=== PATIENT | female | born 1960 | race Caucasian/White ===

== ENCOUNTER 2017-09-15 19:01 | Observation (INO) | payer BC ==
--- NOTE | 2017-09-15 19:41 | ED ---
General Adult HPI - General Chief complaint: Chest Pain Stated complaint: sob, chest pain, left shoulder/neck pain Time Seen by Provider: 09/15/17 19:15 Source: patient, RN notes reviewed, old records reviewed Mode of arrival: wheelchair Limitations: no limitations - History of Present Illness Initial comments: 57-year-old female history of hypothyroidism presents for evaluation of anterior chest pain. Patient states the pain began around 6 PM. She did have an episode earlier in the day which was associated with a stressful event. Patient denies cough or URI symptoms. Denies fever or chills. Patient states she had some nausea associated with the pain. No diaphoresis. Patient has past medical history of congestive heart failure which she states was secondary to hypothyroidism. She is a type I diabetic. She follows with cardiology at [facility]. No history of coronary artery disease. - Related Data Home Medications Medication Instructions Recorded Confirmed Aspirin EC [Ecotrin Low Dose] 81 mg PO DAILY 09/15/17 09/15/17 Furosemide [Lasix] 40 mg PO HS 09/15/17 09/15/17 Losartan Potassium 50 mg PO DAILY 09/15/17 09/15/17 Methimazole [Tapazole] 2.5 mg PO DAILY 09/15/17 09/15/17 Multivitamins, Thera [Multivitamin 1 tab PO DAILY 09/15/17 09/15/17 (formulary)] Potassium Chloride [Klor-Con 20] 40 meq PO HS 09/15/17 09/15/17 Pravastatin Sodium [Pravachol] 10 mg PO DAILY 09/15/17 09/15/17 Ubidecarenone [Co Q-10] 100 mg PO DAILY 09/15/17 09/15/17 Allergies Allergy/AdvReac Type Severity Reaction Status Date / Time cucumber Allergy Unknown Verified 09/15/17 19:11 erythromycin base Allergy Unknown Verified 09/15/17 19:11 Influenza Virus Vaccines Allergy Unknown Verified 09/15/17 19:11 Latex, Natural Rubber Allergy Unknown Verified 09/15/17 19:11 shellfish derived Allergy Unknown Verified 09/15/17 19:11 Review of Systems ROS Statement: Those systems with pertinent positive or pertinent negative responses have been documented in the HPI. ROS Other: All systems not noted in ROS Statement are negative. Past Medical History Past Medical History: Heart Failure, Diabetes Mellitus, Fibromyalgia, Osteoarthritis (OA), Thyroid Disorder Additional Past Medical History / Comment(s): graves disease History of Any Multi-Drug Resistant Organisms: None Reported Past Surgical History: Hysterectomy, Orthopedic Surgery Past Psychological History: No Psychological Hx Reported Smoking Status: Never smoker Past Alcohol Use History: None Reported Past Drug Use History: None Reported General Exam Limitations: no limitations General appearance: alert, in no apparent distress Head exam: Present: atraumatic, normocephalic Eye exam: Present: normal appearance, PERRL ENT exam: Present: normal exam Neck exam: Present: normal inspection. Absent: tenderness, meningismus Respiratory exam: Present: normal lung sounds bilaterally, chest wall tenderness. Absent: respiratory distress Cardiovascular Exam: Present: regular rate, normal rhythm GI/Abdominal exam: Present: soft. Absent: distended, tenderness Extremities exam: Present: full ROM, normal capillary refill, pedal edema Neurological exam: Present: alert, oriented X3, CN II-XII intact. Absent: motor sensory deficit Psychiatric exam: Present: normal affect, normal mood Skin exam: Present: warm, dry, intact. Absent: cyanosis, diaphoretic Course Vital Signs 09/15/17 09/15/17 09/15/17 19:05 20:00 20:31 Temperature 97.4 F L Pulse Rate 76 62 69 Respiratory 20 18 18 Rate Blood Pressure 174/82 184/78 184/78 O2 Sat by Pulse 99 100 98 Oximetry 09/15/17 21:35 Temperature Pulse Rate 77 Respiratory 18 Rate Blood Pressure 179/80 O2 Sat by Pulse 97 Oximetry EKG Findings - EKG Comments: EKG Findings:: EKG shows no sinus rhythm, ventricular rate 71, para 124, QS duration 100, QTC 454, no ST segment elevation or depression Medical Decision Making - Medical Decision Making 57-year-old female presenting with chest pain. EKG is nonischemic. Patient has significant risk factors for coronary artery disease including obesity, type 1 diabetes. No known history of coronary artery disease. Laboratory studies reveal normal white blood cell count, stable hemoglobin, d-dimer is negative. Troponin is negative, CMP within normal limits. Chest x-ray negative for acute findings. Patient will be placed in observation for serial cardiac enzymes and cardiology consult. - Lab Data Result diagrams: 09/15/17 19:38 09/15/17 19:38 Lab Results 09/15/17 09/15/17 09/15/17 Range/Units 19:38 19:38 19:38 WBC 7.6 (3.8-10.6) k/uL RBC 5.03 (3.80-5.40) m/uL Hgb 14.8 (11.4-16.0) gm/dL Hct 45.6 (34.0-46.0) % MCV 90.7 (80.0-100.0) fL MCH 29.5 (25.0-35.0) pg MCHC 32.6 (31.0-37.0) g/dL RDW 13.1 (11.5-15.5) % Plt Count 225 (150-450) k/uL Neutrophils % 63 % Lymphocytes % 26 % Monocytes % 6 % Eosinophils % 3 % Basophils % 1 % Neutrophils # 4.8 (1.3-7.7) k/uL Lymphocytes # 2.0 (1.0-4.8) k/uL Monocytes # 0.4 (0-1.0) k/uL Eosinophils # 0.2 (0-0.7) k/uL Basophils # 0.1 (0-0.2) k/uL PT (9.0-12.0) sec INR (<1.2) APTT (22.0-30.0) sec D-Dimer (<0.60) mg/L FEU Sodium 141 (137-145) mmol/L Potassium 3.7 (3.5-5.1) mmol/L Chloride 100 (98-107) mmol/L Carbon Dioxide 28 (22-30) mmol/L Anion Gap 13 mmol/L BUN 10 (7-17) mg/dL Creatinine 0.70 (0.52-1.04) mg/dL Est GFR (MDRD) Af Amer >60 (>60 ml/min/1.73 sqM) Est GFR (MDRD) Non-Af >60 (>60 ml/min/1.73 sqM) Glucose 185 H (74-99) mg/dL Calcium 9.3 (8.4-10.2) mg/dL Magnesium 2.0 (1.6-2.3) mg/dL Total Bilirubin 0.3 (0.2-1.3) mg/dL AST 23 (14-36) U/L ALT 33 (9-52) U/L Alkaline Phosphatase 94 (38-126) U/L Total Creatine Kinase 60 (30-135) U/L CK-MB (CK-2) 0.6 (0.0-2.4) ng/mL CK-MB (CK-2) Rel Index 1.0 Troponin I <0.012 (0.000-0.034) ng/mL NT-Pro-B Natriuret Pep pg/mL Total Protein 7.5 (6.3-8.2) g/dL Albumin 4.2 (3.5-5.0) g/dL 09/15/17 09/15/17 Range/Units 19:38 19:38 WBC (3.8-10.6) k/uL RBC (3.80-5.40) m/uL Hgb (11.4-16.0) gm/dL Hct (34.0-46.0) % MCV (80.0-100.0) fL MCH (25.0-35.0) pg MCHC (31.0-37.0) g/dL RDW (11.5-15.5) % Plt Count (150-450) k/uL Neutrophils % % Lymphocytes % % Monocytes % % Eosinophils % % Basophils % % Neutrophils # (1.3-7.7) k/uL Lymphocytes # (1.0-4.8) k/uL Monocytes # (0-1.0) k/uL Eosinophils # (0-0.7) k/uL Basophils # (0-0.2) k/uL PT 9.9 (9.0-12.0) sec INR 1.0 (<1.2) APTT 22.7 (22.0-30.0) sec D-Dimer 0.33 (<0.60) mg/L FEU Sodium (137-145) mmol/L Potassium (3.5-5.1) mmol/L Chloride (98-107) mmol/L Carbon Dioxide (22-30) mmol/L Anion Gap mmol/L BUN (7-17) mg/dL Creatinine (0.52-1.04) mg/dL Est GFR (MDRD) Af Amer (>60 ml/min/1.73 sqM) Est GFR (MDRD) Non-Af (>60 ml/min/1.73 sqM) Glucose (74-99) mg/dL Calcium (8.4-10.2) mg/dL Magnesium (1.6-2.3) mg/dL Total Bilirubin (0.2-1.3) mg/dL AST (14-36) U/L ALT (9-52) U/L Alkaline Phosphatase (38-126) U/L Total Creatine Kinase (30-135) U/L CK-MB (CK-2) (0.0-2.4) ng/mL CK-MB (CK-2) Rel Index Troponin I (0.000-0.034) ng/mL NT-Pro-B Natriuret Pep 60 pg/mL Total Protein (6.3-8.2) g/dL Albumin (3.5-5.0) g/dL Disposition Clinical Impression: Chest pain Disposition: ADMITTED IP TO THIS HOSP Condition: Stable Referrals: Pretty Westbrook MD [Primary Care Provider] - 1-2 days Decision to Admit Reason: Admit from EC Decision Date: 09/15/17 Decision Time: 21:51
[2017-09-15 19:53] LABS: Basophils # (A) 0.1 k/uL (0-0.2); Basophils % (A) 1 %; Eosinophils # (A) 0.2 k/uL (0-0.7); Eosinophils % (A) 3 %; HCT 45.6 % (34.0-46.0); HGB 14.8 gm/dL (11.4-16.0); Lymphocytes % (A) 26 %; MCH 29.5 pg (25.0-35.0); MCHC 32.6 g/dL (31.0-37.0); MCV 90.7 fL (80.0-100.0); Mean Platelet Volume 6.6; Monocytes # (A) 0.4 k/uL (0-1.0); Monocytes % (A) 6 %; Neutrophils # (A) 4.8 k/uL (1.3-7.7); Neutrophils % (A) 63 %; Platelet Count 225 k/uL (150-450); RBC 5.03 m/uL (3.80-5.40); RDW 13.1 % (11.5-15.5); WBC 7.6 k/uL (3.8-10.6)
[2017-09-15 20:04] LABS: ALT 33 U/L (9-52); AST 23 U/L (14-36); Albumin 4.2 g/dL (3.5-5.0); Alkaline Phosphatase 94 U/L (38-126); Anion Gap 13 mmol/L; Blood Urea Nitrogen 10 mg/dL (7-17); Calcium 9.3 mg/dL (8.4-10.2); Carbon Dioxide 28 mmol/L (22-30); Chloride 100 mmol/L (98-107); Glucose 185 mg/dL (74-99); Potassium 3.7 mmol/L (3.5-5.1); Sodium 141 mmol/L (137-145); Total Bilirubin 0.3 mg/dL (0.2-1.3); Total Protein 7.5 g/dL (6.3-8.2)
[2017-09-15 20:13] LABS: Creatine Kinase 60 U/L (30-135)
[2017-09-15 20:14] LABS: D-Dimer 0.33 mg/L FEU (<0.60); Partial Thromboplastin Time 22.7 sec (22.0-30.0); Prothrombin Time 9.9 sec (9.0-12.0)
--- NOTE | 2017-09-15 20:16 | XR ---
EXAMINATION TYPE: XR chest 2V DATE OF EXAM: 09/15/2017 COMPARISON: NONE HISTORY: Shortness of breath and chest pain going into left neck and shoulder. TECHNIQUE: Frontal and lateral views of the chest are obtained. FINDINGS: Exam is slightly suboptimal secondary to patient's large body habitus. There is no focal a ir space opacity, pleural effusion, or pneumothorax seen. The cardiac silhouette size is within norm al limits. The osseous structures are intact. IMPRESSION: No acute cardiopulmonary process.
[2017-09-15 20:26] LABS: Creatine Kinase MB 0.6 ng/mL (0.0-2.4); Troponin I <0.012 ng/mL (0.000-0.034)
[2017-09-15] MEDS ORDERED: NALOXONE 0.4 MG/ML 1 ML VIAL IV PRN (21:31)
[2017-09-15] MEDS ORDERED: ACETAMINOPHEN TAB 325 MG TAB PO PRN (21:42)
[2017-09-15] MEDS ORDERED: IBUPROFEN 400 MG TAB PO PRN (21:42)
[2017-09-15] MEDS ORDERED: ONDANSETRON 4 MG/2 ML VIAL IVP PRN (21:42)
[2017-09-15] MEDS ORDERED: MORPHINE SULFATE 4 MG/ML SYRINGE IV PRN (21:42)
[2017-09-15] MEDS ORDERED: ASPIRIN 325 MG TAB PO STA (21:47)
[2017-09-15] MEDS ORDERED: FUROSEMIDE 40 MG TAB PO SCH (22:00)
[2017-09-16] MEDS ORDERED: INSPUCOR MISCELLANE PRN (00:49)
[2017-09-16] MEDS ORDERED: INSULIN PUMP BASAL RATES 1 EACH MISC MISCELLANE PRN (00:49)
[2017-09-16] MEDS ORDERED: INSULIN ASPART 100 UNIT/ML 1 ML 10 ML VIAL SQ PRN (00:49)
[2017-09-16 03:14] LABS: Creatine Kinase 55 U/L (30-135)
[2017-09-16 03:22] LABS: Creatine Kinase MB 0.4 ng/mL (0.0-2.4); Troponin I <0.012 ng/mL (0.000-0.034)
--- NOTE | 2017-09-16 05:06 | HP ---
HISTORY AND PHYSICAL DATE OF SERVICE: 09/15/2017 CHIEF COMPLAINT: Chest pain. HISTORY OF PRESENT ILLNESS: This 57-year-old woman with a past medical history of multiple medical problems including heart failure, history of diabetes, fibromyalgia, hyperlipidemia, hypothyroidism, Graves disease, diabetes mellitus uses insulin pump, and history of congestive heart failure associated with Graves disease being by Dr. Westbrook in the outpatient setting, also being followed by [facility]. The patient apparently had a stress test about 2 years ago and subsequent had appointment recently, but the patient came to [facility] and admitted with complaints of chest pain which is felt in the anterior chest pain. Patient also had other chest pain this morning which was associated with some stressful event, but the pain also was associated with some nausea. Otherwise there was no radiation of pain, or other aggravating factors. The patient came to [facility] and admitted for further evaluation and treatment. There is no history of fever, rigors or chills. No history of headache, loss of consciousness, seizures. PAST MEDICAL HISTORY: History of CHF, history of diabetes and fibromyalgia, hyperlipidemia, DJD, hypothyroid, hysterectomy. MEDICATIONS: Prior to admission include home medications are: 1. Tapazole 2.5 mg daily. 2. Lasix 40 mg q.a.m. 3. Klor-Con 40 mg p.o. q.h.s. 4. Coenzyme Q 100 mg p.o. daily. 5. Multivitamins 1 p.o. daily. 6. Losartan 50 mg p.o. daily. 7. Ecotrin 81 mg p.o. daily. 8. Pravachol 10 mg p.o. daily. ALLERGIES: CUCUMBER, ERYTHROMYCIN, INFLUENZA VACCINE, LATEX AND SHELLFISH. FAMILY HISTORY: History of mitral valve prolapse and Alzheimer's in the family. SOCIAL HISTORY: No history of smoking. No history of alcohol intake. REVIEW OF SYSTEMS: ENT: No diminished vision. No diminished hearing. Cardio system: As mentioned earlier. Respiratory: As mentioned earlier. GI no nausea or diarrhea. no dysuria or retention. Nervous system: No numbness, weakness. Allergy/Immunology: No asthma or hay fever. MUSCULOSKELETAL: As mentioned earlier. Hematology/Oncology: No history of anemia. Endocrine: No history of diabetes or hypothyroidism. Constitutional: As mentioned earlier. Dermatology: Negative. Rheumatology: Negative. Psychiatry: As mentioned earlier. PHYSICAL EXAM: The patient is alert and oriented times three. Pulse 66, blood pressure 119/70, respiration 18, temperature 98 degrees, pulse ox 98% on room air. HEENT: Conjunctivae normal. Oral mucosa moist. Neck is no jugular venous distention. No carotid bruit. No lymph node enlargement. Cardiovascular S1-S2. No S3, no S4. Respiratory: Breath sounds diminished in the bases. No rhonchi and no crackles. ABDOMEN: Soft, nontender. No mass palpable. Legs no edema. No swelling. NERVOUS SYSTEM: Higher functions as mentioned earlier, moves all 4 limbs. No focal motor or sensory deficits. Lymphatics: No lymph nodes palpable in the neck, axillae or groin. Skin no ulcer, rash or bleeding. LAB DATA: CBC within normal limits and glucose 185. ASSESSMENT: 1. Chest pain possible unstable angina. 2. History of congestive heart failure, associated with . 3. History of diabetes type 2. 4. History of fibromyalgia. 5. Hyperlipidemia. 6. History of degenerative joint disease. 7. History of Graves disease. 8. History of diabetes on insulin pump. 9. History of hysterectomy. RECOMMENDATIONS AND DISCUSSION: In this 57-year-old woman who presented with multiple complex medical issues, we will monitor the patient closely. Continue the current medications, management and symptomatic treatment. Unstable angina protocol. Resume the home medications. Monitor blood sugars closely, insulin pump. Repeat labs. Cardiology evaluation. Guarded prognosis because of multiple complex medical issues. Further recommendations to follow. MMODL / IJN: [id number] / MTDD
[2017-09-16 07:41] VITALS: RESP 16
[2017-09-16] MEDS ORDERED: PRAVASTATIN SODIUM 20 MG TAB PO SCH (09:00)
[2017-09-16] MEDS ORDERED: ASPIRIN 81 MG PO SCH (09:00)
[2017-09-16] MEDS ORDERED: NON-FORMULARY DRUG (Ubidecarenone [Co Q-10] 100 MG) PO SCH (09:00)
[2017-09-16] MEDS ORDERED: METHIMAZOLE 5 MG TAB PO SCH (09:00)
[2017-09-16] MEDS ORDERED: LOSARTAN 50 MG TAB PO SCH ×2 (09:00)
[2017-09-16] MEDS: INSULIN PUMP MEAL BOLUS 1 UNIT MISC MISCELLANE SCH ×2 (09:29→12:40)
[2017-09-16 09:30] LABS: Creatine Kinase 53 U/L (30-135)
[2017-09-16 09:41] LABS: Creatine Kinase MB 0.4 ng/mL (0.0-2.4); Troponin I <0.012 ng/mL (0.000-0.034)
--- NOTE | 2017-09-16 11:33 | P.CRDCN ---
History of Present Illness Consult date: 09/16/17 Consult reason: chest pain History of present illness: Mrs. Russell is a pleasant 57-year-old female past medical history significant for dyslipidemia, hypertension, remote history of heart failure 5 years ago unknown type, diabetes mellitus, graves disease and arthritis. She denies history of CAD and follows with a skoog patching machine operator Dr. Schreiber out of [facility]. We have been asked to see her in consultation for complaints of chest pain. She states yesterday while she was driving home from work she developed a tight sensation in her left anterior chest wall associated with nausea and generalized flushing. The pain did not radiate anywhere and she denies shortness of breath, dizziness, palpitations or vomiting. She also denies PND or orthopnea. The sensation resolved on its own but she continued to have elevated blood pressures through the night with systolic up as high as 191. At the time of my exam she is seen sitting up in bed in no acute distress. No further episodes of chest pain or nausea since admission. Her episode of heart failure was associated with an acute hypothyroid event and had resolved completely with no exacerbations since that initial episode 5 years ago. She states her last stress test was 2-3 yrs ago with her skoog patching machine operator and per her was normal. EKG on arrival reveals sinus mechanism with no acute ST or T-wave abnormalities. Chest xray negative for an acute cardiopulmonary process. Laboratory data reviewed, hemoglobin 14.8, platelets 225, d-dimer 0.33, potassium 3.7, magnesium 2.0, creatinine 0.7, cardiac enzymes negative 3. Current cardiac medications include Lasix 40 mg at at bedtime, potassium 40 daily, losartan 50 mg daily, aspirin 81 mg daily and pravastatin 10 mg daily. Review of Systems At the time of my exam: CONSTITUTIONAL: Denies fever. Denies chills. EYES: Denies blurred vision. Denies vision changes. Denies eye pain. EARS, NOSE, MOUTH & THROAT: Denies headache. Denies sore throat. Denies ear pain. CARDIOVASCULAR: Denies chest pain. Denies shortness of breath. Denies orthopnea. Denies PND. Denies palpitations. RESPIRATORY: Denies cough. GASTROINTESTINAL: Denies abdominal pain. Denies diarrhea. Denies constipation. Denies nausea. Denies vomiting. MUSCULOSKELETAL: Denies myalgias. INTEGUMENTARY: Denies pruitis. Denies rash. NEUROLOGIC: Denies numbness. Denies tingling. Denies weakness. PSYCHIATRIC: Denies anxiety. Denies depression. ENDOCRINE: Denies fatigue. Denies weight change. Denies polydipsia. Denies polyurina. GENITOURINARY: Denies burning, hematuria or urgency with micturation. HEMATOLOGIC: Denies history of anemia. Denies bleeding. Past Medical History Past Medical History: Heart Failure, Diabetes Mellitus, Fibromyalgia, Hyperlipidemia, Osteoarthritis (OA), Thyroid Disorder Additional Past Medical History / Comment(s): graves disease, IDDM with insulin pump History of Any Multi-Drug Resistant Organisms: None Reported Past Surgical History: Hysterectomy, Orthopedic Surgery Additional Past Surgical History / Comment(s): right hand carpal tunnel-trigger thumb, left knee surgery Additional Past Anesthesia/Blood Transfusion Reaction / Comment(s): difficulty waking up Past Psychological History: No Psychological Hx Reported Smoking Status: Never smoker Past Alcohol Use History: None Reported Past Drug Use History: None Reported - Past Family History Mother Family Medical History: Mitral Valve Prolapse (MVP) Additional Family Medical History / Comment(s): alzheimers Medications and Allergies Home Medications Medication Instructions Recorded Confirmed Type Aspirin EC [Ecotrin Low Dose] 81 mg PO DAILY 09/15/17 09/15/17 History Furosemide [Lasix] 40 mg PO HS 09/15/17 09/15/17 History Losartan Potassium 50 mg PO DAILY 09/15/17 09/15/17 History Methimazole [Tapazole] 2.5 mg PO DAILY 09/15/17 09/15/17 History Multivitamins, Thera [Multivitamin 1 tab PO DAILY 09/15/17 09/15/17 History (formulary)] Potassium Chloride [Klor-Con 20] 40 meq PO HS 09/15/17 09/15/17 History Pravastatin Sodium [Pravachol] 10 mg PO DAILY 09/15/17 09/15/17 History Ubidecarenone [Co Q-10] 100 mg PO DAILY 09/15/17 09/15/17 History Allergies Allergy/AdvReac Type Severity Reaction Status Date / Time cucumber Allergy Unknown Verified 09/15/17 19:11 erythromycin base Allergy Unknown Verified 09/15/17 19:11 Influenza Virus Vaccines Allergy Unknown Verified 09/15/17 19:11 Latex, Natural Rubber Allergy Unknown Verified 09/15/17 19:11 shellfish derived Allergy Unknown Verified 09/15/17 19:11 Physical Exam Vitals: Vital Signs Temp Pulse Pulse Resp BP BP Pulse Ox 09/16/17 07:40 98 F 78 16 148/66 96 09/16/17 04:00 60 18 09/16/17 03:11 97.9 F 64 18 138/64 95 09/16/17 00:40 61 18 136/60 98 09/16/17 00:00 61 18 09/15/17 23:33 98 F 66 18 191/76 98 09/15/17 22:08 81 18 151/72 99 09/15/17 21:35 77 18 179/80 97 09/15/17 20:31 78 18 155/71 98 09/15/17 20:00 62 18 184/78 100 09/15/17 19:05 97.4 F L 76 20 174/82 99 Intake and Output 09/15/17 09/16/17 09/16/17 22:59 06:59 14:59 Intake Total 250 Balance 250 Intake: Oral 250 Other: Voiding Method Toilet # Voids 2 Weight 115.666 kg 115.2 kg Blood pressure 140/66 heart rate 78 afebrile GENERAL: This is a 57-year-old female in no apparent distress at the time of my examination. HEENT: Head is atraumatic, normocephalic. Pupils are equal, round. Sclerae anicteric. Conjunctivae are clear. Mucous membranes of the mouth are moist. Neck is supple. There is no jugular venous distention. No carotid bruit is heard. LUNGS: Clear to auscultation no wheezes, rales or rhonchi. No chest wall tenderness is noted on palpation or with deep breathing. HEART: Regular rate and rhythm without murmurs, rubs or gallops. S1 and S2 heard. ABDOMEN: Soft, nontender. Bowel sounds are heard. No organomegaly noted. EXTREMITIES: Trace pitting bilateral lower extremity edema. No calf tenderness noted. VASCULAR: Radial and dorsalis pedis pulses palpated, no evidence of clubbing. NEUROLOGIC: Patient is awake, alert and oriented x3. Results 09/15/17 19:38 09/15/17 19:38 Cardiac Enzymes 09/15/17 09/15/17 09/16/17 Range/Units 19:38 19:38 02:25 AST 23 (14-36) U/L CK-MB (CK-2) 0.6 0.4 (0.0-2.4) ng/mL Troponin I <0.012 <0.012 (0.000-0.034) ng/mL Coagulation 09/15/17 Range/Units 19:38 PT 9.9 (9.0-12.0) sec APTT 22.7 (22.0-30.0) sec CBC 09/15/17 Range/Units 19:38 WBC 7.6 (3.8-10.6) k/uL RBC 5.03 (3.80-5.40) m/uL Hgb 14.8 (11.4-16.0) gm/dL Hct 45.6 (34.0-46.0) % Plt Count 225 (150-450) k/uL Comprehensive Metabolic Panel 09/15/17 Range/Units 19:38 Sodium 141 (137-145) mmol/L Potassium 3.7 (3.5-5.1) mmol/L Chloride 100 (98-107) mmol/L Carbon Dioxide 28 (22-30) mmol/L BUN 10 (7-17) mg/dL Creatinine 0.70 (0.52-1.04) mg/dL Glucose 185 H (74-99) mg/dL Calcium 9.3 (8.4-10.2) mg/dL AST 23 (14-36) U/L ALT 33 (9-52) U/L Alkaline Phosphatase 94 (38-126) U/L Total Protein 7.5 (6.3-8.2) g/dL Albumin 4.2 (3.5-5.0) g/dL Current Medications Generic Name Dose Route Start Last Admin Trade Name Freq PRN Reason Stop Dose Admin Acetaminophen 650 mg 09/15/17 21:42 Tylenol Tab PO Q6HR PRN Mild Pain or Fever > 100.5 Aspirin 81 mg 09/16/17 09:00 Aspirin PO DAILY FRANCE Furosemide 40 mg 09/15/17 22:00 09/16/17 01:01 Lasix PO Not Given HS FRANCE Ibuprofen 400 mg 09/15/17 21:42 Motrin PO Q6HR PRN Mild Pain or Fever > 100.5 Insulin Aspart 0 unit 09/16/17 00:49 Novolog SQ DAILY PRN Insulin Pump Replacement Losartan Potassium 50 mg 09/16/17 09:00 Cozaar PO DAILY FRANCE Methimazole 2.5 mg 09/16/17 09:00 Tapazole PO DAILY FRANCE Miscellaneous Information 1 each 09/16/17 00:49 Insulin Pump Basal Rates MISCELLANE Q6HR PRN Blood Sugar - High Protocol Miscellaneous Information 0 unit 09/16/17 00:49 Insulin Pump Correction Bolus MISCELLANE ACHS PRN Blood Sugar - High Protocol Miscellaneous Information 0 unit 09/16/17 07:30 Insulin Pump Meal Bolus MISCELLANE ACHS [facility] Protocol Morphine Sulfate 4 mg 09/15/17 21:42 Morphine Sulfate (Inj) IV Q4HR PRN Severe Pain Naloxone HCl 0.2 mg 09/15/17 21:31 Narcan IV Q2M PRN Opioid Reversal Ondansetron HCl 4 mg 09/15/17 21:42 Zofran IVP Q8HR PRN Nausea And Vomiting Potassium Chloride 40 meq 09/16/17 21:00 K-Dur 20 PO HS [facility] Pravastatin Sodium 10 mg 09/16/17 09:00 Pravachol PO DAILY [facility] Intake and Output 09/15/17 09/16/17 09/16/17 22:59 06:59 14:59 Intake Total 250 Balance 250 Intake: Oral 250 Other: Voiding Method Toilet # Voids 2 Weight 115.666 kg 115.2 kg 09/15/17 19:38 09/15/17 19:38 Assessment and Plan Assessment: ASSESSMENT 1. Chest pain, atypical. EKG feels no evidence of ischemia and cardiac enzymes are negative 3. 2. Hypertension, uncontrolled 3. Dyslipidemia 4. Diabetes mellitus, insulin dependant 5. Remote history of heart failure, unknown type. Takes lasix daily for lower extremity edema. Has missed the last 2 days doses. 6. Obesity, BMI 38.5 PLAN Obtain 2-D echocardiogram and Doppler study to assess cardiac structure and function. Perform Cardiolite stress test to evaluate for reversible cardiac ischemia. Increase losartan to 100 mg daily. Lifestyle modifications discussed for weight loss and increasing activity. If above diagnostic testing is negative she is stable from a cardiac perspective. She already has an appointment upcoming with her primary skoog patching machine operator 09/29. Thank you kindly for this consultation. Nurse Practitioner note has been reviewed, I agree with a documented findings and plan of care. Patient was seen and examined.
[2017-09-16 11:42] LABS: Hemoglobin A1C 7.1 % (4.0-6.0)
[2017-09-16 11:59] VITALS: BP 141/68; PULSE 68; TEMP 97.6
--- NOTE | 2017-09-16 12:00 | NM ---
EXAMINATION TYPE: NM stress cardiolite complete DATE OF EXAM: 09/16/2017 COMPARISON: NONE HISTORY: Chest pain TECHNIQUE: After the intravenous administration of 11.8 mCi Tc 99m Sestamibi - Rest images obtained 45 minutes post injection. The patient exercised using a SHERIN protocol and 1 minute prior to peak exercise was injected with 29.6 mCi Tc 99m Sestamibi - Stress images obtained 15 minutes post injecti on. FINDINGS: No fixed or reversible perfusion defects are evident on SPECT imaging. Polar maps appear within herbert l limits. There is some mild dyskinesia of the anterior wall on gated wall motion. Ejection fraction of 67% is normal. IMPRESSION: 1. No stress-induced ischemic changes. 2. There may be some mild dyskinesia of the anterior wall during evaluation of the graded wall motion . Ejection fraction is normal.
--- NOTE | 2017-09-16 12:31 | ECHOF ---
Referral Reason:chest pain MEASUREMENTS -------- HEIGHT: 172.7 cm WEIGHT: 114.8 kg BP: 148/66 RVIDd: 2.8 cm (< 3.3) IVSd: 1.2 cm (0.6 - 1.1) LVIDd: 4.4 cm (3.9 - 5.3) LVPWd: 1.0 cm (0.6 - 1.1) IVSs: 1.9 cm LVIDs: 3.1 cm LVPWs: 1.6 cm LAESV Index (A-L): 25.16 ml/m Ao Diam: 3.2 cm (2.0 - 3.7) AV Cusp: 2.2 cm (1.5 - 2.6) MV EXCURSION: 16.659 mm (> 18.000) MV EF SLOPE: 87 mm/s (70 - 150) EPSS: 0.5 cm MV E David: 0.89 m/s MV DecT: 226 ms MV A David: 0.69 m/s MV E/A Ratio: 1.29 AR PHT: 572 ms FINDINGS -------- Sinus rhythm. This was a technically difficult study with suboptimal views. The left ventricular size is normal. There is borderline concentric left ventricular hypertrophy. Overall left ventricular systolic function is normal with, an EF between 55 - 60 %. The right ventricle is normal in size. Normal LA size by volume 22+/-6 ml/m2. The right atrium is normal in size. There is mild aortic valve sclerosis. There is mild aortic regurgitation. The mitral valve is normal. Mild tricuspid regurgitation present. Right ventricular systolic pressure is normal at < 35 mmHg. The pulmonic valve was not well visualized. There is no pulmonic regurgitation present. The aortic root size is normal. Normal inferior vena cava with normal inspiratory collapse consistent with estimated right atrial pre ssure of 5 mmHg. There is no pericardial effusion. CONCLUSIONS -------- 1. Sinus rhythm. 2. This was a technically difficult study with suboptimal views. 3. The left ventricular size is normal. 4. There is borderline concentric left ventricular hypertrophy. 5. Overall left ventricular systolic function is normal with, an EF between 55 - 60 %. 6. Normal LA size by volume 22+/-6 ml/m2. 7. There is mild aortic valve sclerosis. 8. There is mild aortic regurgitation. 9. The mitral valve is normal. 10. Mild tricuspid regurgitation present. 11. Right ventricular systolic pressure is normal at < 35 mmHg. 12. The pulmonic valve was not well visualized. 13. There is no pulmonic regurgitation present. 14. The aortic root size is normal. 15. Normal inferior vena cava with normal inspiratory collapse consistent with estimated right atrial pressure of 5 mmHg. 16. There is no pericardial effusion. WARDROBE COORDINATOR: Gertrude Suarez RDCS
--- NOTE | 2017-09-16 14:25 | EST ---
EXERCISE STRESS DATE OF SERVICE: 09/16/2017 AGE: 57 SEX: Female. HT: 5'8-/2" WT: 255 pounds PROTOCOL: CARDIOLITE SHERIN STAGE: I DURATION OF EXERCISE: 3 minutes and 35 seconds. HEART RATE REST: 69 BLOOD PRESSURE REST: 153/83 MAXIMUM HEART RATE ACHIEVED: 153 MAXIMUM BLOOD PRESSURE: 204/75 85% MPHR: 139 100% MPHR: 163 METS: 5,2 INDICATIONS: Chest pain. CLINICAL INFORMATION: Baseline rhythm is sinus mechanism, rate 69, normal axis and intervals, poor poor R- wave progression. Baseline blood pressure 153/83 mmHg. Patient exercised on Sherin protocol for 3 minute 35 seconds reaching peak rate of 153 beats per minute, which is equal to 94% maximum predicted heart rate. Peak blood pressure 204/75 mmHg. Test was terminated secondary to fatigue. There was no chest pain. Electrocardiograph monitoring revealed no evidence of diagnostic ischemic ST deviation. Cardiolite was injected at peak exercise. CONCLUSION: 1. Poor exercise tolerance with normal electrocardiograph response to exercise. 2. Nuclear images will be reported separately. MMODL / IJN: [id number] /
--- NOTE | 2017-09-16 20:16 | DS ---
DISCHARGE SUMMARY FINAL DIAGNOSES: 1. Chest pain, possibly musculoskeletal, with a negative stress test. 2. History of congestive heart failure associated with Graves disease. 3. History of diabetes mellitus, type 2. 4. History of fibromyalgia. 5. Hyperlipidemia. 6. History of degenerative joint disease. 7. History of Graves disease. 8. History of diabetes, on insulin pump. 9. History of hysterectomy. DISCHARGE DISPOSITION: The patient will be discharged in stable condition with guarded prognosis. Cardiology cleared the patient to be discharged. HISTORY OF PRESENT ILLNESS: This 57-year-old woman with a past medical history of multiple medical problems, being followed by Dr. Westbrook in the outpatient setting, was complaining of chest pain. Cardiolite stress test was negative. Myocardial infarction was ruled out. Patient improved significantly. Patient will be discharged in stable condition with guarded prognosis. On examination, vitals are stable. CARDIOVASCULAR SYSTEM: S1, S2 muffled. ABDOMEN: Soft. NERVOUS SYSTEM: No focal deficit. DISCHARGE ADVICE AND MEDICATIONS: 1. Diet is cardiac. 2. Activity limited until followup. 3. Follow up with Dr. Westbrook in 2 to 3 days. 4. Follow up with Cardiology as advised. 5. Ecotrin 81 mg p.o. daily. 6. Lasix 40 mg at bedtime. 7. Cozaar 100 mg p.o. daily. 8. Tapazole 2.5 mg p.o. daily. 9. Multivitamins 1 p.o. daily. 10.Klor-Con 40 mEq p.o. at bedtime. 11.Pravachol 10 mg p.o. daily. 12.Coenzyme Q 100 mg p.o. daily. MMODL / IJN: [id number] /
[2017-09-16] MEDS ORDERED: POTASSIUM CHLORIDE ER 20 MEQ TAB.ER PO SCH (21:00)
== END 2017-09-16 14:34 ==
LOC: EC 19:01 → 3OBS 21:31
PROVIDERS: ADMIT Hospitalist; ATTEND Hospitalist
DX: R07.89 Other chest pain (principal); R11.0 Nausea; R23.2 Flushing; M25.512 Pain in left shoulder; M54.2 Cervicalgia; I11.0 Hypertensive heart disease with heart failure; I50.9 Heart failure, unspecified; E05.00 Thyrotoxicosis with diffuse goiter without thyrotoxic crisis or storm; E03.9 Hypothyroidism, unspecified; E11.9 Type 2 diabetes mellitus without complications; M79.7 Fibromyalgia; E78.5 Hyperlipidemia, unspecified; M19.90 Unspecified osteoarthritis, unspecified site; Z96.41 Presence of insulin pump (external) (internal); E66.9 Obesity, unspecified; Z68.38 Body mass index [BMI] 38.0-38.9, adult; Z88.1 Allergy status to other antibiotic agents; Z91.040 Latex allergy status; Z91.013 Allergy to seafood; Z88.7 Allergy status to serum and vaccine; Z91.018 Allergy to other foods; Z79.899 Other long term (current) drug therapy; Z79.82 Long term (current) use of aspirin; Z82.0 Family history of epilepsy and other diseases of the nervous system; Z79.4 Long term (current) use of insulin; Z90.710 Acquired absence of both cervix and uterus
CPT/HCPCS: 99285; 36415; 93005; 93017; 93306; 85379; 83880; 80053; 82550 ×2; 82553 ×2; 83735; 84484 ×2; 85025; 85610; 85730; 83036; 71046; 78452; G0378 ×2; A9500

== ENCOUNTER 2020-06-16 13:56 | Inpatient (IN) | payer BC ==
[2020-06-16] MEDS ORDERED: SODIUM CHLORIDE 0.9% 1,000 ML IV STA (14:35)
[2020-06-16] MEDS ORDERED: diphenhydrAMINE 50 MG/ML 1 ML VIAL IVP STA ×2 (14:37→18:29)
[2020-06-16] MEDS ORDERED: FAMOTIDINE 20 MG/2 ML VIAL IV STA (14:37)
[2020-06-16] MEDS ORDERED: SODIUM CHLORIDE 0.9% 500 ML 500 ML IV ONE (14:37)
[2020-06-16] MEDS ORDERED: METOCLOPRAMIDE 5 MG/ML 2 ML VIAL IVP STA (14:37)
--- NOTE | 2020-06-16 15:06 | ED ---
General Adult HPI <Arnol Oropeza - Last Filed: 06/16/20 17:05> - General Source: patient, EMS Mode of arrival: EMS Limitations: no limitations <Jenny Ray - Last Filed: 06/16/20 17:56> - General Chief complaint: Nausea/Vomiting/Diarrhea Stated complaint: nausea/vomiting Time Seen by Provider: 06/16/20 14:01 - History of Present Illness Initial comments: 60-year-old female with a history of type 1 diabetes and Graves' disease presents to emergency department with complaints of decreased appetite and persistent nausea for the past 9 days. She is also reporting intermittent diarrhea. No hematemesis or hematochezia or melena. Reports fluctuating blood sugar levels. Patient complains of marked fatigue. States she has also had a cough with hemoptysis for the past 5 days. Patient denies vomiting, diarrhea, shortness of breath, and chest pain. Patient denies any recent rash, fever, chills, abdominal pain, constipation, back pain, numbness, tingling, dizziness, weakness, hematuria, dysuria, urinary urgency, urinary frequency, headache, visual changes, or any other complaints. (Jenny Ray) - Related Data Home Medications Medication Instructions Recorded Confirmed Aspirin EC [Ecotrin Low Dose] 81 mg PO DAILY 09/15/17 06/16/20 Furosemide [Lasix] 40 mg PO HS 09/15/17 06/16/20 Multivitamins, Thera [Multivitamin 1 tab PO DAILY 09/15/17 06/16/20 (formulary)] Potassium Chloride [Klor-Con 20] 20 meq PO BID 09/15/17 06/16/20 methIMAzole [Tapazole] 2.5 mg PO Q48H 09/15/17 06/16/20 Insulin Aspart (For Pump) [NovoLOG 0.01 unit SQ-PUMP CONTINUOUS 06/16/20 06/16/20 (For Pump)] Losartan Potassium [Cozaar] 100 mg PO DAILY 06/16/20 06/16/20 Metoprolol Succinate [Toprol XL] 50 mg PO DAILY 06/16/20 06/16/20 Ondansetron [Zofran] 4 mg PO DAILY PRN 06/16/20 06/16/20 Pravastatin Sodium [Pravachol] 20 mg PO HS 06/16/20 06/16/20 Allergies Allergy/AdvReac Type Severity Reaction Status Date / Time cucumber Allergy Unknown Verified 06/16/20 15:39 erythromycin base Allergy Unknown Verified 06/16/20 15:39 Influenza Virus Vaccines Allergy Unknown Verified 06/16/20 15:39 Latex, Natural Rubber Allergy Unknown Verified 06/16/20 15:39 shellfish derived Allergy Unknown Verified 06/16/20 15:39 Review of Systems ROS Other: All systems not noted in ROS Statement are negative. <Arnol Oropeza - Last Filed: 06/16/20 17:05> ROS Other: All systems not noted in ROS Statement are negative. <Jenny Ray - Last Filed: 06/16/20 17:56> ROS Statement: Those systems with pertinent positive or pertinent negative responses have been documented in the HPI. Past Medical History Past Medical History: Heart Failure, Diabetes Mellitus, Fibromyalgia, Hyperlipidemia, Osteoarthritis (OA), Thyroid Disorder Additional Past Medical History / Comment(s): graves disease, IDDM with insulin pump History of Any Multi-Drug Resistant Organisms: None Reported Past Surgical History: Hysterectomy, Orthopedic Surgery Additional Past Surgical History / Comment(s): right hand carpal tunnel-trigger thumb, left knee surgery Additional Past Anesthesia/Blood Transfusion Reaction / Comment(s): difficulty waking up Past Psychological History: No Psychological Hx Reported Smoking Status: Never smoker Past Alcohol Use History: None Reported Past Drug Use History: None Reported - Past Family History Mother Family Medical History: Mitral Valve Prolapse (MVP) Additional Family Medical History / Comment(s): alzheimers <Jenny Ray - Last Filed: 06/16/20 17:56> General Exam Limitations: no limitations (Well-developed, well-nourished female in no acute distress. Initial temperature 99.1F, pulse 66, respirations 18, blood pressure 121/50, pulse ox 94% on room air.) General appearance: alert, in no apparent distress ENT exam: Present: normal exam, mucous membranes moist, TM's normal bilaterally Neck exam: Present: normal inspection. Absent: tenderness, meningismus, lymphadenopathy Respiratory exam: Present: normal lung sounds bilaterally. Absent: respiratory distress, wheezes, rales, rhonchi, stridor Cardiovascular Exam: Present: regular rate, normal rhythm, normal heart sounds. Absent: systolic murmur, diastolic murmur, rubs, gallop, clicks GI/Abdominal exam: Present: soft, normal bowel sounds, other (Insulin pump present). Absent: distended, tenderness, guarding, rebound, rigid Neurological exam: Present: alert, oriented X3, CN II-XII intact Psychiatric exam: Present: normal affect, normal mood <Jenny Ray - Last Filed: 06/16/20 17:56> Course <SandipArnol - Last Filed: 06/16/20 17:05> Vital Signs 06/16/20 06/16/20 14:35 17:00 Temperature 99.1 F 100.8 F H Pulse Rate 66 Respiratory 18 Rate Blood Pressure 121/50 126/86 O2 Sat by Pulse 94 L Oximetry - Reevaluation(s) Reevaluation #1: 06/16/20 17:05 N P supervision: I did personally evaluate this case patient be admitted for inpatient treatment. It is outpatient treatment failure. (Arnol Oropeza) EKG Findings - EKG Comments: EKG Findings:: EKG obtained at 1450 shows normal sinus rhythm with ventricular rate of 65, CO interval 122, QRS duration 96, QT 428, QTC 445. No evidence of ST elevation or depression. <Jenny Ray - Last Filed: 06/16/20 17:56> Medical Decision Making - Lab Data Result diagrams: 06/16/20 15:05 06/16/20 15:05 <Arnol Oropeza - Last Filed: 06/16/20 17:05> - Lab Data Result diagrams: 06/16/20 15:05 06/16/20 15:05 - Radiology Data Radiology results: report reviewed, image reviewed <Jenny Ray - Last Filed: 06/16/20 17:56> - Medical Decision Making 60-year-old female patient presented to the emergency department today for evaluation of nausea, weakness, fatigue, and hemoptysis with cough for the last 9 days. Physical examination was generally unremarkable. Lungs are clear to auscultation. Oxygen saturation was 94% on room air. Labs reviewed and did reveal positive Covid results. Remainder of labs did reveal elevated d-dimer, elevated LDH and CRP. X-ray of the chest shows bilateral patchy infiltrates consistent with COVID pneumonia. Patient will go for CT angiography of the chest per Dr. Lui's request. Dr. Gamboa and Dr. Irby have been consulted. Patient is agreeable with admission. (Jenny Ray) - Lab Data Lab Results 06/16/20 06/16/20 06/16/20 Range/Units 15:05 15:05 15:05 WBC 4.9 (3.8-10.6) k/uL RBC 4.80 (3.80-5.40) m/uL Hgb 14.2 (11.4-16.0) gm/dL Hct 42.0 (34.0-46.0) % MCV 87.5 (80.0-100.0) fL MCH 29.5 (25.0-35.0) pg MCHC 33.7 (31.0-37.0) g/dL RDW 13.1 (11.5-15.5) % Plt Count 161 (150-450) k/uL Neutrophils % 80 % Lymphocytes % 13 % Monocytes % 4 % Eosinophils % 0 % Basophils % 1 % Neutrophils # 3.9 (1.3-7.7) k/uL Lymphocytes # 0.6 L (1.0-4.8) k/uL Monocytes # 0.2 (0-1.0) k/uL Eosinophils # 0.0 (0-0.7) k/uL Basophils # 0.0 (0-0.2) k/uL PT (9.0-12.0) sec INR (<1.2) APTT (22.0-30.0) sec D-Dimer (<0.60) mg/L FEU Sodium 135 L (137-145) mmol/L Potassium 4.1 (3.5-5.1) mmol/L Chloride 104 (98-107) mmol/L Carbon Dioxide 25 (22-30) mmol/L Anion Gap 6 mmol/L BUN 10 (7-17) mg/dL Creatinine 0.75 (0.52-1.04) mg/dL Est GFR (CKD-EPI)AfAm >90 (>60 ml/min/1.73 sqM) Est GFR (CKD-EPI)NonAf 87 (>60 ml/min/1.73 sqM) Glucose 129 H (74-99) mg/dL Plasma Lactic Acid Tyrell (0.7-2.0) mmol/L Calcium 7.8 L (8.4-10.2) mg/dL Magnesium (1.6-2.3) mg/dL Total Bilirubin 0.8 (0.2-1.3) mg/dL AST 47 H (14-36) U/L ALT 23 (4-34) U/L Alkaline Phosphatase 63 (38-126) U/L Lactate Dehydrogenase (313-618) U/L Troponin I (0.000-0.034) ng/mL C-Reactive Protein (<10.0) mg/L Total Protein 6.4 (6.3-8.2) g/dL Albumin 3.2 L (3.5-5.0) g/dL Amylase 38 (30-110) U/L Lipase 71 (23-300) U/L Urine Color Yellow Urine Appearance Clear (Clear) Urine pH 6.0 (5.0-8.0) Ur Specific Brent 1.012 (1.001-1.035) Urine Protein Trace H (Negative) Urine Glucose (UA) Negative (Negative) Urine Ketones 1+ H (Negative) Urine Blood Negative (Negative) Urine Nitrite Negative (Negative) Urine Bilirubin Negative (Negative) Urine Urobilinogen <2.0 (<2.0) mg/dL Ur Leukocyte Esterase Negative (Negative) Coronavirus (PCR) (Not Detectd) 06/16/20 06/16/20 06/16/20 Range/Units 15:05 15:05 17:03 WBC (3.8-10.6) k/uL RBC (3.80-5.40) m/uL Hgb (11.4-16.0) gm/dL Hct (34.0-46.0) % MCV (80.0-100.0) fL MCH (25.0-35.0) pg MCHC (31.0-37.0) g/dL RDW (11.5-15.5) % Plt Count (150-450) k/uL Neutrophils % % Lymphocytes % % Monocytes % % Eosinophils % % Basophils % % Neutrophils # (1.3-7.7) k/uL Lymphocytes # (1.0-4.8) k/uL Monocytes # (0-1.0) k/uL Eosinophils # (0-0.7) k/uL Basophils # (0-0.2) k/uL PT 10.4 (9.0-12.0) sec INR 1.0 (<1.2) APTT 23.0 (22.0-30.0) sec D-Dimer 0.79 H (<0.60) mg/L FEU Sodium (137-145) mmol/L Potassium (3.5-5.1) mmol/L Chloride (98-107) mmol/L Carbon Dioxide (22-30) mmol/L Anion Gap mmol/L BUN (7-17) mg/dL Creatinine (0.52-1.04) mg/dL Est GFR (CKD-EPI)AfAm (>60 ml/min/1.73 sqM) Est GFR (CKD-EPI)NonAf (>60 ml/min/1.73 sqM) Glucose (74-99) mg/dL Plasma Lactic Acid Tyrell (0.7-2.0) mmol/L Calcium (8.4-10.2) mg/dL Magnesium (1.6-2.3) mg/dL Total Bilirubin (0.2-1.3) mg/dL AST (14-36) U/L ALT (4-34) U/L Alkaline Phosphatase (38-126) U/L Lactate Dehydrogenase (313-618) U/L Troponin I <0.012 (0.000-0.034) ng/mL C-Reactive Protein (<10.0) mg/L Total Protein (6.3-8.2) g/dL Albumin (3.5-5.0) g/dL Amylase (30-110) U/L Lipase (23-300) U/L Urine Color Urine Appearance (Clear) Urine pH (5.0-8.0) Ur Specific Brent (1.001-1.035) Urine Protein (Negative) Urine Glucose (UA) (Negative) Urine Ketones (Negative) Urine Blood (Negative) Urine Nitrite (Negative) Urine Bilirubin (Negative) Urine Urobilinogen (<2.0) mg/dL Ur Leukocyte Esterase (Negative) Coronavirus (PCR) Detected A (Not Detectd) 06/16/20 06/16/20 Range/Units 17:03 17:03 WBC (3.8-10.6) k/uL RBC (3.80-5.40) m/uL Hgb (11.4-16.0) gm/dL Hct (34.0-46.0) % MCV (80.0-100.0) fL MCH (25.0-35.0) pg MCHC (31.0-37.0) g/dL RDW (11.5-15.5) % Plt Count (150-450) k/uL Neutrophils % % Lymphocytes % % Monocytes % % Eosinophils % % Basophils % % Neutrophils # (1.3-7.7) k/uL Lymphocytes # (1.0-4.8) k/uL Monocytes # (0-1.0) k/uL Eosinophils # (0-0.7) k/uL Basophils # (0-0.2) k/uL PT (9.0-12.0) sec INR (<1.2) APTT (22.0-30.0) sec D-Dimer (<0.60) mg/L FEU Sodium (137-145) mmol/L Potassium (3.5-5.1) mmol/L Chloride (98-107) mmol/L Carbon Dioxide (22-30) mmol/L Anion Gap mmol/L BUN (7-17) mg/dL Creatinine (0.52-1.04) mg/dL Est GFR (CKD-EPI)AfAm (>60 ml/min/1.73 sqM) Est GFR (CKD-EPI)NonAf (>60 ml/min/1.73 sqM) Glucose (74-99) mg/dL Plasma Lactic Acid Tyrell 1.1 (0.7-2.0) mmol/L Calcium (8.4-10.2) mg/dL Magnesium 2.2 (1.6-2.3) mg/dL Total Bilirubin (0.2-1.3) mg/dL AST (14-36) U/L ALT (4-34) U/L Alkaline Phosphatase (38-126) U/L Lactate Dehydrogenase 985 H (313-618) U/L Troponin I (0.000-0.034) ng/mL C-Reactive Protein 51.8 H (<10.0) mg/L Total Protein (6.3-8.2) g/dL Albumin (3.5-5.0) g/dL Amylase (30-110) U/L Lipase (23-300) U/L Urine Color Urine Appearance (Clear) Urine pH (5.0-8.0) Ur Specific Brent (1.001-1.035) Urine Protein (Negative) Urine Glucose (UA) (Negative) Urine Ketones (Negative) Urine Blood (Negative) Urine Nitrite (Negative) Urine Bilirubin (Negative) Urine Urobilinogen (<2.0) mg/dL Ur Leukocyte Esterase (Negative) Coronavirus (PCR) (Not Detectd) - Radiology Data Two-view x-ray of the chest is obtained. Report reviewed in its entirety. Impression by Dr. Irizarry shows patchy perihilar and basilar infiltrate seen. Correlate for Covid 19 pneumonia. (Jenny Ray) Disposition <Arnol Oropeza - Last Filed: 06/16/20 17:05> Decision to Admit Reason: Admit from EC Decision Date: 06/16/20 Decision Time: 16:34 <Jenny Ray - Last Filed: 06/16/20 17:56> Clinical Impression: Pneumonia due to COVID-19 virus, Weakness, Nausea Disposition: ADMITTED IP TO THIS HOSP Condition: Serious
[2020-06-16 15:28] LABS: ALT 23 U/L (4-34); AST 47 U/L (14-36); African American GFR (CKD) >90 (>60 ml/min/1.73 sqM); Albumin 3.2 g/dL (3.5-5.0); Alkaline Phosphatase 63 U/L (38-126); Amylase 38 U/L (30-110); Anion Gap 6 mmol/L; Blood Urea Nitrogen 10 mg/dL (7-17); Calcium 7.8 mg/dL (8.4-10.2); Carbon Dioxide 25 mmol/L (22-30); Chloride 104 mmol/L (98-107); Glucose 129 mg/dL (74-99); Lipase 71 U/L (23-300); Non-African American GFR(CKD) 87 (>60 ml/min/1.73 sqM); Sodium 135 mmol/L (137-145); Total Bilirubin 0.8 mg/dL (0.2-1.3); Total Protein 6.4 g/dL (6.3-8.2)
[2020-06-16 15:31] LABS: Basophils % (A) 1 %; Eosinophils % (A) 0 %; HGB 14.2 gm/dL (11.4-16.0); Lymphocytes # (A) 0.6 k/uL (1.0-4.8); Lymphocytes % (A) 13 %; MCH 29.5 pg (25.0-35.0); MCHC 33.7 g/dL (31.0-37.0); MCV 87.5 fL (80.0-100.0); Mean Platelet Volume 7.4; Monocytes # (A) 0.2 k/uL (0-1.0); Monocytes % (A) 4 %; Neutrophils # (A) 3.9 k/uL (1.3-7.7); Neutrophils % (A) 80 %; Platelet Count 161 k/uL (150-450); RDW 13.1 % (11.5-15.5); WBC 4.9 k/uL (3.8-10.6)
[2020-06-16 15:32] LABS: Potassium 4.1 mmol/L (3.5-5.1)
[2020-06-16 15:38] LABS: Appearance,Urine Clear (Clear); Bilirubin,Urine Negative (Negative); Blood,Urine Negative (Negative); Color,Urine Yellow; Glucose,Urine (UA) Negative (Negative); Ketones,Urine 1+ (Negative); Leukocyte Esterase,Urine Negative (Negative); Nitrite,Urine Negative (Negative); Protein,Urine Trace (Negative); Specific Gravity,Urine 1.012 (1.001-1.035); Urobilinogen,Urine <2.0 mg/dL (<2.0)
--- NOTE | 2020-06-16 15:55 | XR ---
EXAMINATION TYPE: XR chest 2V DATE OF EXAM: 06/16/2020 COMPARISON: 09/15/2017 HISTORY: Shortness of breath TECHNIQUE: Frontal and lateral views of the chest are obtained. FINDINGS: Scattered senescent parenchymal changes noted. Hyperinflation compatible with COPD. Patchy perihilar and basilar infiltrates seen. Correlate for Covid 19 pneumonia. Heart size is stable. Mediastinal structures are stable and grossly unremarkable. No evidence for hilar prominence. Degenerative changes dorsal spine. IMPRESSION: 1. Patchy perihilar and basilar infiltrates seen. Correlate for Covid 19 pneumonia.
[2020-06-16] MEDS ORDERED: NALOXONE 0.4 MG/ML 1 ML VIAL IV PRN (16:31)
[2020-06-16] MEDS ORDERED: diphenhydrAMINE 50 MG/ML 1 ML VIAL IVP PRN (16:33)
[2020-06-16] MEDS: ACETAMINOPHEN TAB 325 MG TAB PO PRN (17:04)
[2020-06-16 17:24] LABS: C Reactive Protein 51.8 mg/L (<10.0); Magnesium 2.2 mg/dL (1.6-2.3)
[2020-06-16 17:28] LABS: D-Dimer 0.79 mg/L FEU (<0.60); Prothrombin Time 10.4 sec (9.0-12.0)
[2020-06-16] MEDS ORDERED: methylPREDNISolone SOD SUCCI 125 MG/2 ML VIAL IV STA (18:29)
[2020-06-16 18:36] LABS: Glucose,Whole Blood 154 mg/dL (75-99)
[2020-06-16] MEDS ORDERED: ONDANSETRON 4 MG TAB PO PRN (19:16)
[2020-06-16] MEDS: METOCLOPRAMIDE 5 MG/ML 2 ML VIAL IVP SCH (19:17)
[2020-06-16] MEDS ORDERED: Insulin Aspart (For Pump) 100 UNIT/ML VIAL SQ-PUMP SCH (19:30)
[2020-06-16] MEDS: ASCORBIC ACID 500 MG TAB PO SCH (20:04)
[2020-06-16] MEDS: CALCIUM CARB-VIT D 500MG-200UN 1 EACH TAB PO SCH (20:04)
[2020-06-16] MEDS: ZINC SULFATE 220 MG CAP PO SCH (20:05)
[2020-06-16] MEDS: POTASSIUM CHLORIDE ER 20 MEQ TAB.ER PO SCH (21:05)
[2020-06-16] MEDS: PRAVASTATIN SODIUM 20 MG TAB PO SCH (21:05)
[2020-06-16] MEDS: FUROSEMIDE 40 MG TAB PO SCH (21:14)
[2020-06-16] MEDS: FAMOTIDINE 20 MG TAB PO SCH (21:15)
[2020-06-16] MEDS: DEXAMETHASONE SOD PHOSPHATE 10 MG/ML 1 ML VIAL IV SCH (21:19)
[2020-06-17] MEDS: METOCLOPRAMIDE 5 MG/ML 2 ML VIAL IVP SCH ×5 (00:43→23:14)
[2020-06-17 01:41] LABS: Ferritin 707.9 ng/mL (10.0-291.0)
[2020-06-17 06:15] LABS: Basophils % (A) 0 %; Eosinophils % (A) 0 %; HCT 41.6 % (34.0-46.0); HGB 13.9 gm/dL (11.4-16.0); Lymphocytes # (A) 0.4 k/uL (1.0-4.8); Lymphocytes % (A) 8 %; MCH 29.2 pg (25.0-35.0); MCHC 33.3 g/dL (31.0-37.0); MCV 87.6 fL (80.0-100.0); Mean Platelet Volume 7.3; Monocytes # (A) 0.1 k/uL (0-1.0); Monocytes % (A) 3 %; Neutrophils # (A) 4.4 k/uL (1.3-7.7); Neutrophils % (A) 87 %; Platelet Count 228 k/uL (150-450); RBC 4.75 m/uL (3.80-5.40); RDW 12.9 % (11.5-15.5); WBC 5.1 k/uL (3.8-10.6)
[2020-06-17] MEDS ORDERED: INSULIN PUMP BASAL RATES 1 EACH MISC MISCELLANE PRN (08:47)
[2020-06-17] MEDS ORDERED: INSULIN PUMP TARGET GLUCOSE 1 EACH MISC MISCELLANE PRN (08:47)
[2020-06-17] MEDS ORDERED: INSULIN PUMP ACTIVE INSULIN 1 EACH MISC MISCELLANE PRN (08:47)
[2020-06-17] MEDS ORDERED: INSULIN ASPART (NovoLOG) 100 UNIT/ML VIAL SQ PRN (08:47)
[2020-06-17] MEDS ORDERED: INSPUCOR MISCELLANE PRN (08:47)
[2020-06-17] MEDS: DEXAMETHASONE SOD PHOSPHATE 10 MG/ML 1 ML VIAL IV SCH (09:21)
[2020-06-17] MEDS: POTASSIUM CHLORIDE ER 20 MEQ TAB.ER PO SCH ×2 (09:22→21:31)
[2020-06-17] MEDS: CALCIUM CARB-VIT D 500MG-200UN 1 EACH TAB PO SCH ×2 (09:22→16:51)
[2020-06-17] MEDS: ASCORBIC ACID 500 MG TAB PO SCH (09:22)
[2020-06-17] MEDS: ASPIRIN 81 MG PO SCH (09:22)
[2020-06-17] MEDS: MULTIVITAMINS, THERA 1 EACH TAB PO SCH (09:22)
[2020-06-17] MEDS: LOSARTAN 50 MG TAB PO SCH (09:22)
[2020-06-17] MEDS: ZINC SULFATE 220 MG CAP PO SCH (09:22)
[2020-06-17] MEDS: METOPROLOL SUCCINATE (ER) 50 MG TAB.ER.24H PO SCH (09:22)
[2020-06-17] MEDS: FAMOTIDINE 20 MG TAB PO SCH ×2 (09:22→21:30)
[2020-06-17 09:39] LABS: African American GFR (CKD) 92.9 (60.0-200.0); Anion Gap 8.6 mmol/L (4.00-12.00); BUN/Creat Ratio 12.5 Ratio (12.00-20.00); C Reactive Protein 7.8 mg/dL (0.0-0.8); Calcium 8.1 mg/dL (8.7-10.3); Carbon Dioxide 27.4 mmol/L (21.6-31.8); Non-African American GFR(CKD) 80.1 (60.0-200.0)
[2020-06-17 11:38] LABS: Glucose,Whole Blood 135 mg/dL (75-99)
[2020-06-17] MEDS: INSULIN PUMP MEAL BOLUS 1 UNIT MISC MISCELLANE SCH ×3 (13:01→21:30)
[2020-06-17] MEDS ORDERED: ENOXAPARIN 40 MG/0.4 ML SYRINGE SQ SCH (14:00)
[2020-06-17] MEDS ORDERED: REMDESIVIR (EUA) 200 MG in SODIUM CHLORIDE 0.9% 250 ML IVPB ONE (16:00)
[2020-06-17 16:37] LABS: Glucose,Whole Blood 191 mg/dL (75-99)
--- NOTE | 2020-06-17 16:37 | NM ---
EXAMINATION TYPE: NM pul perfusion DATE OF EXAM: 06/17/2020 COMPARISON: Prior chest x-ray 06/16/2020 HISTORY: Covid pneumonia Following administration of 5.3 mCi Tc 99m MAA. Images obtained post injection. FINDINGS: There is essentially homogenous uptake of radiopharmaceutical within the lungs on perfusion imaging. IMPRESSION: Pulmonary embolism is not evident. Low probability for pulmonary embolus.
[2020-06-17] MEDS: ACETAMINOPHEN TAB 325 MG TAB PO PRN (16:51)
--- NOTE | 2020-06-17 17:01 | PN ---
PROGRESS NOTE DATE OF SERVICE: 06/17/2020 This is a 60-year-old woman who was admitted with COVID-19, also had COVID-19 pneumonia, the patient is being closely monitored at this time. The patient has been started on Solu-Medrol and Remdesivir. Infectious Disease following the patient closely. Past medical history reviewed. REVIEW OF SYSTEMS: CARDIOVASCULAR: S1, S2, muffled. RESPIRATION: As mentioned earlier. GI: As mentioned earlier. : As mentioned earlier. NERVOUS SYSTEM: No numbness or weakness. CURRENT MEDICATIONS: Reviewed include; 1. Tylenol. 2. Aspirin. 3. Os-Andrés with vitamin D. 4. Benadryl. 5. Lasix. 6. NovoLog. 7. Reglan. Doses reviewed. PHYSICAL EXAM: Patient alert and oriented x3. Pulse 65, blood pressure 140/76, respiration 18, temperature 97.9, pulse ox 96% on room air. HEENT: Conjunctivae normal. NECK: No jugular venous distension. HEART: S1, S2, muffled. RESPIRATION: Breath sounds diminsihed at the bases, bilateral scattered rhonchi, no crackles. ABDOMEN: Soft, nontender. LEGS: No edema. No swelling. NERVOUS SYSTEM: No focal deficits. LABS: CBC within normal limits. D-dimer is 2.62 and glucose 114 and LDH is 398. COVID is positive. ASSESSMENT: 1. Bilateral COVID-19 pneumonia with hypoxic respiratory failure. 2. Elevated D-dimer with no evidence of pulmonary embolus. 3. Hyponatremia. 4. Elevated ferritin. 5. Elevated LDH and CRP. 6. History of CHF, ejection fraction unknown. 7. Diabetes mellitus type 2. 8. Fibromyalgia. 9. Hyperlipidemia. 10.History of Graves disease. 11.History of diabetes type 2 with insulin pump. 12.History of degenerative joint disease. 13.History of right hand carpal tunnel syndrome. 14.Obesity with body mass index 39.5. RECOMMENDATION: This 60-year-old woman who presented with multiple complex medical issues, will monitor the patient closely, continue with the current management and symptomatic treatment. Otherwise, bronchodilators, Remdesivir, procalcitonin level is normal. We will repeat x-rays, DVT prophylaxis. Guarded prognosis. Further recommendations to follow. MMODL / IJN: [id number] /
--- NOTE | 2020-06-17 18:40 | CT ---
EXAMINATION TYPE: CT chest wo con DATE OF EXAM: 06/17/2020 COMPARISON: None HISTORY: Shortness of breath. +COVID. CT DLP: 736.3 mGycm Automated exposure control for dose reduction was used. There are patchy peripheral pulmonary airspace infiltrates throughout both lungs. There are small med iastinal lymph nodes measuring less than 1 cm. There are no hilar masses. Heart size is normal. There is no pericardial effusion. The bony thorax is intact. There is spurring in the thoracic spine. There is no significant compression deformity. Sternum is in tact. IMPRESSION: Extensive patchy pulmonary airspace infiltrates in the upper and lower lobes bilaterally. This is con sistent with inflammatory disease. Pulmonary infiltrates are probably increased compared to chest x-r ay yesterday.
--- NOTE | 2020-06-17 20:19 | P.CNPUL ---
History of Present Illness Consult date: 06/17/20 Reason for consult: dyspnea, cough, hypoxemia Chief complaint: Cough shortness of breath for last 5 days History of present illness: This is a 60-year-old female with the prior medical history of type 1 diabetes mellitus also has a history of Graves' disease, she has been not feeling well for last 9-10 days with poor appetite and intermittent nausea 5 days ago she started having cough shortness of breath, she was found to be coag 19 positive outside test, her chest x-ray admitted shows bilateral patchy infiltrate p redominantly in perihilar area consistent with covid 19 pneumonia, VQ scan is low probability for PE, computed tomography scan of his chest shows bilateral patchy infiltrate consistent with covid 19 pneumonia, patient has inflammatory parameters elevated however Procan sit on and is within normal limit, her oxygen saturation is 94% on 2 L, she did desaturate to 90% room air Review of Systems All systems: negative Past Medical History Past Medical History: Heart Failure, Diabetes Mellitus, Fibromyalgia, Hyperlipidemia, Osteoarthritis (OA), Thyroid Disorder Additional Past Medical History / Comment(s): graves disease, IDDM with insulin pump History of Any Multi-Drug Resistant Organisms: None Reported Past Surgical History: Hysterectomy, Orthopedic Surgery Additional Past Surgical History / Comment(s): right hand carpal tunnel-trigger thumb, left knee surgery Additional Past Anesthesia/Blood Transfusion Reaction / Comment(s): difficulty waking up Past Psychological History: No Psychological Hx Reported Smoking Status: Never smoker Past Alcohol Use History: None Reported Past Drug Use History: None Reported - Past Family History Mother Family Medical History: Mitral Valve Prolapse (MVP) Additional Family Medical History / Comment(s): alzheimers Medications and Allergies Home Medications Medication Instructions Recorded Confirmed Type Aspirin EC [Ecotrin Low Dose] 81 mg PO DAILY 09/15/17 06/16/20 History Furosemide [Lasix] 40 mg PO HS 09/15/17 06/16/20 History Multivitamins, Thera [Multivitamin 1 tab PO DAILY 09/15/17 06/16/20 History (formulary)] Potassium Chloride [Klor-Con 20] 20 meq PO BID 09/15/17 06/16/20 History methIMAzole [Tapazole] 2.5 mg PO Q48H 09/15/17 06/16/20 History Insulin Aspart (For Pump) [NovoLOG 0.01 unit SQ-PUMP CONTINUOUS 06/16/20 06/16/20 History (For Pump)] Losartan Potassium [Cozaar] 100 mg PO DAILY 06/16/20 06/16/20 History Metoprolol Succinate [Toprol XL] 50 mg PO DAILY 06/16/20 06/16/20 History Ondansetron [Zofran] 4 mg PO DAILY PRN 06/16/20 06/16/20 History Pravastatin Sodium [Pravachol] 20 mg PO HS 06/16/20 06/16/20 History Allergies Allergy/AdvReac Type Severity Reaction Status Date / Time cucumber Allergy Unknown Verified 06/16/20 15:39 erythromycin base Allergy Unknown Verified 06/16/20 15:39 Influenza Virus Vaccines Allergy Unknown Verified 06/16/20 15:39 Iodinated Contrast Media Allergy Anaphylaxis Verified 06/16/20 18:26 Latex, Natural Rubber Allergy Unknown Verified 06/16/20 15:39 shellfish derived Allergy Unknown Verified 06/16/20 15:39 Physical Exam Vitals: Vital Signs Temp Pulse Pulse Resp BP BP Pulse Ox 06/17/20 15:00 97.5 F L 63 18 153/69 94 L 06/17/20 09:00 97.9 F 65 18 144/76 90 L 06/17/20 07:30 86 16 132/76 99 06/17/20 06:45 98.8 F 16 136/64 06/17/20 00:48 98.7 F 17 127/58 Intake and Output 06/17/20 06/17/20 06/17/20 06:59 14:59 22:59 Other: Voiding Method Toilet # Voids 2 Weight 117.934 kg - Constitutional General appearance: average body habitus, disheveled - EENT Eyes: PERRLA Ears: bilateral: normal - Neck Carotids: bilateral: upstroke normal - Respiratory Respiratory: bilateral: CTA - Cardiovascular Rhythm: regular Heart sounds: normal: S1, S2 - Neurologic Neurologic: CNII-XII intact - Musculoskeletal Musculoskeletal: gait normal, generalized weakness, strength equal bilaterally - Psychiatric Psychiatric: A&O x's 3, appropriate affect, intact judgment & insight Results - Laboratory Findings CBC and BMP: 06/17/20 05:59 06/17/20 05:59 PT/INR, D-dimer PT 10.4 sec (9.0-12.0) 06/16/20 17:03 INR 1.0 (<1.2) 06/16/20 17:03 D-Dimer 0.62 mg/L FEU (<0.60) H 06/17/20 05:59 Abnormal lab findings: Abnormal Labs 06/16/20 06/16/20 06/16/20 15:05 15:05 15:05 Lymphocytes # 0.6 L D-Dimer Sodium 135 L Glucose 129 H POC Glucose (mg/dL) Calcium 7.8 L Ferritin AST 47 H Lactate Dehydrogenase C-Reactive Protein Albumin 3.2 L Urine Protein Trace H Urine Ketones 1+ H Coronavirus (PCR) 06/16/20 06/16/20 06/16/20 15:05 17:03 17:03 Lymphocytes # D-Dimer 0.79 H Sodium Glucose POC Glucose (mg/dL) Calcium Ferritin 707.9 H AST Lactate Dehydrogenase 985 H C-Reactive Protein 51.8 H Albumin Urine Protein Urine Ketones Coronavirus (PCR) Detected A 06/16/20 06/17/20 06/17/20 18:35 05:59 05:59 Lymphocytes # 0.4 L D-Dimer 0.62 H Sodium Glucose POC Glucose (mg/dL) 154 H Calcium Ferritin AST Lactate Dehydrogenase C-Reactive Protein Albumin Urine Protein Urine Ketones Coronavirus (PCR) 06/17/20 06/17/20 06/17/20 05:59 11:37 16:35 Lymphocytes # D-Dimer Sodium Glucose 114 H POC Glucose (mg/dL) 135 H 191 H Calcium 8.1 L Ferritin AST Lactate Dehydrogenase 398 H C-Reactive Protein 7.8 H Albumin Urine Protein Urine Ketones Coronavirus (PCR) - Diagnostic Findings Chest x-ray: report reviewed, image reviewed CT scan - chest: report reviewed, image reviewed (Finding as noted above) Assessment and Plan Assessment: Covert 19 pneumonia Acute hypoxic respiratory failure Type 1 diabetes Elevated d-dimer and inflammatory parameters consistent with above Dyslipidemia History of Graves' disease Morbid obesity Plan: IV Remdesivir Supplemental oxygen Oral Decadron Deep breathing exercise incentive spirometry Prone positioning Bronchodilator as needed Continue anticoagulation with Lovenox Further recommendations pending plan of care as per clinical response of patient Time with Patient: Greater than 30
[2020-06-17 20:53] LABS: Glucose,Whole Blood 210 mg/dL (75-99)
[2020-06-17] MEDS: ENOXAPARIN 40 MG/0.4 ML SYRINGE SQ SCH (21:30)
[2020-06-17] MEDS: PRAVASTATIN SODIUM 20 MG TAB PO SCH (21:30)
[2020-06-17] MEDS: FUROSEMIDE 40 MG TAB PO SCH (21:31)
[2020-06-18 02:32] LABS: Glucose,Whole Blood 121 mg/dL (75-99)
[2020-06-18] MEDS: METOCLOPRAMIDE 5 MG/ML 2 ML VIAL IVP SCH ×4 (05:28→23:13)
[2020-06-18 06:20] LABS: Basophils % (A) 1 %; Eosinophils % (A) 0 %; HCT 40.2 % (34.0-46.0); HGB 13.5 gm/dL (11.4-16.0); Lymphocytes # (A) 0.6 k/uL (1.0-4.8); Lymphocytes % (A) 8 %; MCH 29.4 pg (25.0-35.0); MCHC 33.6 g/dL (31.0-37.0); MCV 87.6 fL (80.0-100.0); Mean Platelet Volume 7.4; Monocytes # (A) 0.3 k/uL (0-1.0); Monocytes % (A) 4 %; Neutrophils # (A) 6.5 k/uL (1.3-7.7); Neutrophils % (A) 85 %; Platelet Count 259 k/uL (150-450); RBC 4.59 m/uL (3.80-5.40); RDW 12.5 % (11.5-15.5); WBC 7.6 k/uL (3.8-10.6)
[2020-06-18 07:06] LABS: Glucose,Whole Blood 81 mg/dL (75-99)
--- NOTE | 2020-06-18 07:33 | XR ---
EXAMINATION TYPE: XR chest 1V portable DATE OF EXAM: 06/18/2020 Comparison: 06/16/2020 Clinical History: 60-year-old female covid Findings: Heart limits of normal in size. Worsening bilateral interstitial and now patchy airspace infiltrates bilaterally throughout both lungs. No sizable effusion. Impression: Worsening bilateral infiltrates.
[2020-06-18] MEDS: ENOXAPARIN 40 MG/0.4 ML SYRINGE SQ SCH ×2 (08:09→20:52)
[2020-06-18] MEDS: DEXAMETHASONE SOD PHOSPHATE 10 MG/ML 1 ML VIAL IV SCH (08:10)
[2020-06-18] MEDS: ASPIRIN 81 MG PO SCH (08:10)
[2020-06-18] MEDS: POTASSIUM CHLORIDE ER 20 MEQ TAB.ER PO SCH ×2 (08:10→20:52)
[2020-06-18] MEDS: ASCORBIC ACID 500 MG TAB PO SCH (08:10)
[2020-06-18] MEDS: MULTIVITAMINS, THERA 1 EACH TAB PO SCH (08:10)
[2020-06-18] MEDS: METOPROLOL SUCCINATE (ER) 50 MG TAB.ER.24H PO SCH (08:10)
[2020-06-18] MEDS: LOSARTAN 50 MG TAB PO SCH (08:10)
[2020-06-18] MEDS: FAMOTIDINE 20 MG TAB PO SCH ×2 (08:10→20:52)
[2020-06-18] MEDS: CALCIUM CARB-VIT D 500MG-200UN 1 EACH TAB PO SCH ×2 (08:10→17:25)
[2020-06-18] MEDS: methIMAzole 5 MG TAB PO SCH (08:11)
[2020-06-18] MEDS: ZINC SULFATE 220 MG CAP PO SCH (08:11)
[2020-06-18] MEDS: INSULIN PUMP MEAL BOLUS 1 UNIT MISC MISCELLANE SCH ×4 (08:15→20:52)
[2020-06-18 09:42] LABS: African American GFR (CKD) 80.5 (60.0-200.0); Anion Gap 8.4 mmol/L (4.00-12.00); BUN/Creat Ratio 13.33 Ratio (12.00-20.00); C Reactive Protein 4.8 mg/dL (0.0-0.8); Calcium 8.9 mg/dL (8.7-10.3); Carbon Dioxide 27.6 mmol/L (21.6-31.8); Non-African American GFR(CKD) 69.5 (60.0-200.0); Potassium 4.1 mmol/L (3.5-5.5)
[2020-06-18 10:49] LABS: Glucose,Whole Blood 113 mg/dL (75-99)
--- NOTE | 2020-06-18 14:20 | P.PN ---
Subjective Progress Note Date: 06/18/20 Principal diagnosis: Covid 19 pneumonia Acute hypoxic respiratory failure Type 1 diabetes Morbid obesity Elevated d-dimer and inflammatory parameters consistent with above Dyslipidemia History of Graves' disease 06/18/2020, patient seen eval examined during the rounds labs reviewed medications reviewed care plan discussed, patient has been prone, oxygen saturation 95%, she feels her respiratory status significantly improved, remains on IV Remdesivir along with oral Decadron, chest x-ray done today reviewed slight worsening has been noted however clinically patient definitely has improved with improved oxygen saturation, labs today CBC within normal limit including chemistry, inflammatory parameters reviewed there is a slight improvement and stability noted This is a 60-year-old female with the prior medical history of type 1 diabetes mellitus also has a history of Graves' disease, she has been not feeling well for last 9-10 days with poor appetite and intermittent nausea 5 days ago she started having cough shortness of breath, she was found to be coag 19 positive outside test, her chest x-ray admitted shows bilateral patchy infiltrate predominantly in perihilar area consistent with covid 19 pneumonia, VQ scan is low probability for PE, computed tomography scan of his chest shows bilateral patchy infiltrate consistent with covid 19 pneumonia, patient has inflammatory parameters elevated however Procan sit on and is within normal limit, her oxygen saturation is 94% on 2 L, she did desaturate to 90% room air Objective - Vital Signs Vital signs: Vital Signs Temp 98.2 F 06/18/20 07:00 Pulse 77 06/18/20 07:00 Resp 20 06/18/20 07:00 BP 129/76 06/18/20 07:00 Pulse Ox 95 06/18/20 07:00 Intake & Output 06/17/20 06/18/20 06/18/20 18:59 06:59 18:59 Intake Total 100 Balance 100 Weight 117.934 kg Intake: Oral 100 Other: Voiding Method Toilet # Voids 2 3 - Exam - Constitutional General appearance: average body habitus, disheveled - EENT Eyes: PERRLA Ears: bilateral: normal - Neck Carotids: bilateral: upstroke normal - Respiratory Respiratory: bilateral: CTA - Cardiovascular Rhythm: regular Heart sounds: normal: S1, S2 - Neurologic Neurologic: CNII-XII intact - Musculoskeletal Musculoskeletal: gait normal, generalized weakness, strength equal bilaterally - Psychiatric Psychiatric: A&O x's 3, appropriate affect, intact judgment & insight - Labs CBC & Chem 7: 06/18/20 05:55 06/18/20 05:55 Labs: Abnormal Lab Results - Last 24 Hours (Table) 06/17/20 06/17/20 06/18/20 Range/Units 16:35 20:52 02:28 Lymphocytes # (1.0-4.8) k/uL POC Glucose (mg/dL) 191 H 210 H 121 H (75-99) mg/dL Lactate Dehydrogenase (120-246) U/L C-Reactive Protein (0.0-0.8) mg/dL 06/18/20 06/18/20 06/18/20 Range/Units 05:55 05:55 10:48 Lymphocytes # 0.6 L (1.0-4.8) k/uL POC Glucose (mg/dL) 113 H (75-99) mg/dL Lactate Dehydrogenase 419 H (120-246) U/L C-Reactive Protein 4.8 H (0.0-0.8) mg/dL Assessment and Plan Assessment: Covert 19 pneumonia Acute hypoxic respiratory failure Type 1 diabetes Elevated d-dimer and inflammatory parameters consistent with above Dyslipidemia History of Graves' disease Morbid obesity Plan: IV Remdesivir for 5 days Supplemental oxygen Oral Decadron for 10 days Deep breathing exercise incentive spirometry Prone positioning Bronchodilator as needed Continue anticoagulation with Lovenox Further recommendations pending plan of care as per clinical response of patient Time with Patient: Greater than 30
[2020-06-18] MEDS: REMDESIVIR (EUA) 100 MG in SODIUM CHLORIDE 0.9% 250 ML IVPB SCH (15:40)
[2020-06-18 16:44] LABS: Glucose,Whole Blood 152 mg/dL (75-99)
[2020-06-18] MEDS: ACETAMINOPHEN TAB 325 MG TAB PO PRN (20:02)
--- NOTE | 2020-06-18 20:38 | PN ---
PROGRESS NOTE DATE OF SERVICE: 06/18/2020 This 60-year-old woman who was admitted with COVID-19 had bilateral pneumonia, also. The patient also has hypoxia. The patient has no evidence of pulmonary embolism. The most recent chest x-ray, which was reviewed personally by me, showed significant bilateral pneumonia. The patient was started on remdesivir. The patient is being closely monitored at this time. Past medical history reviewed. REVIEW OF SYSTEMS: CARDIOVASCULAR SYSTEM: No angina, palpitations. RESPIRATORY SYSTEM: As mentioned earlier. GI: As mentioned earlier. : No dysuria or retention. NERVOUS SYSTEM: No numbness, weakness. CURRENT MEDICATIONS: Reviewed. They include Tylenol, vitamin C, aspirin, Os-Andrés with vitamin D, Lovenox, Pepcid, Lasix. PHYSICAL EXAMINATION: Patient is alert, oriented x3. Pulse is 53, blood pressure 145/83, respiration 18, temperature 97.8, pulse ox 98% on 2 L. HEENT: Conjunctivae normal. NECK: No jugular venous distention. CARDIOVASCULAR SYSTEM: S1, S2 muffled. RESPIRATORY SYSTEM: Breath sounds diminished at the bases. Bilateral scattered rhonchi and crackles. ABDOMEN: Soft, non-tender. LEGS: No edema. No swelling. NERVOUS SYSTEM: No focal deficit. LABS: LDH 419. C-reactive protein is 4.8. ASSESSMENT: 1. Bilateral COVID-19 interstitial pneumonia with acute hypoxic respiratory failure, present on admission. 2. Elevated D-dimer with no evidence of pulmonary embolism. 3. Hyponatremia. 4. Elevated ferritin. 5. Elevated LDH and CRP. 6. History of congestive heart failure, ejection fraction unknown. 7. Diabetes mellitus, type 2. 8. Fibromyalgia. 9. Hyperlipidemia. 10.History of Graves' disease. 11.Diabetes mellitus, type 2, on insulin pump. 12.History of degenerative joint disease. 13.History of right hand carpal tunnel syndrome. 14.Obesity with body mass index of 39.5. RECOMMENDATIONS AND DISCUSSION: I recommend to continue current medications, continue with the monitoring, symptomatic treatment. Continue with the bronchodilators. Ensure oxygenation. Otherwise, continue with insulin pump. Continue with remdesivir. Closely follow with Infectious Disease as well as Pulmonary. Guarded prognosis. Further recommendations to follow. MMODL / IJN: [id number] /
[2020-06-18 20:51] LABS: Glucose,Whole Blood 135 mg/dL (75-99)
[2020-06-18] MEDS: PRAVASTATIN SODIUM 20 MG TAB PO SCH (20:52)
--- NOTE | 2020-06-18 22:27 | PN ---
PROGRESS NOTE DATE OF SERVICE: 06/18/2020 REASON FOR FOLLOWUP: Acute COVID-19 pneumonia. INTERVAL HISTORY: The patient is currently afebrile. The patient is breathing more comfortably. The patient denies having any chest pain. She continues to have a cough, though decreased in intensity. It remains dry in nature. No nausea, no vomiting. No abdominal pain or diarrhea. PHYSICAL EXAMINATION: Blood pressure 145/83, pulse of 53, temperature 97.8. She is 98% on 2 L nasal cannula. General description is a middle-aged female up in the bed in no distress. RESPIRATORY SYSTEM: Unlabored breathing with decreased intensity of breath sounds. No wheeze. HEART: S1, S2. Regular rate and rhythm. ABDOMEN: Soft. No tenderness. LAB: White count is 13.5, white count 7.6, BUN of 12, creatinine 0.9. DIAGNOSTIC IMPRESSION AND PLAN: Patient with acute COVID-19 pneumonia in this patient who seems to have some clinical improvement. The patient is currently covered with remdesivir, Lovenox, Decadron and zinc; to continue and monitor clinical course closely. MMODL / IJN: [id number] /
[2020-06-19] MEDS: METOCLOPRAMIDE 5 MG/ML 2 ML VIAL IVP SCH ×4 (05:47→23:21)
[2020-06-19 06:40] LABS: Basophils % (A) 1 %; Eosinophils % (A) 0 %; HCT 38.3 % (34.0-46.0); HGB 13.2 gm/dL (11.4-16.0); Lymphocytes # (A) 0.8 k/uL (1.0-4.8); Lymphocytes % (A) 14 %; MCH 30.3 pg (25.0-35.0); MCHC 34.5 g/dL (31.0-37.0); Mean Platelet Volume 7.3; Monocytes # (A) 0.4 k/uL (0-1.0); Monocytes % (A) 7 %; Neutrophils # (A) 4.1 k/uL (1.3-7.7); Neutrophils % (A) 74 %; Platelet Count 313 k/uL (150-450); RBC 4.35 m/uL (3.80-5.40); RDW 12.6 % (11.5-15.5); WBC 5.5 k/uL (3.8-10.6)
[2020-06-19 07:08] LABS: Glucose,Whole Blood 124 mg/dL (75-99)
[2020-06-19] MEDS: ENOXAPARIN 40 MG/0.4 ML SYRINGE SQ SCH ×2 (08:06→20:14)
[2020-06-19] MEDS: LOSARTAN 50 MG TAB PO SCH (08:07)
[2020-06-19] MEDS: METOPROLOL SUCCINATE (ER) 50 MG TAB.ER.24H PO SCH (08:07)
[2020-06-19] MEDS: ASPIRIN 81 MG PO SCH (08:07)
[2020-06-19] MEDS: ASCORBIC ACID 500 MG TAB PO SCH (08:07)
[2020-06-19] MEDS: FUROSEMIDE 40 MG TAB PO SCH (08:07)
[2020-06-19] MEDS: DEXAMETHASONE SOD PHOSPHATE 10 MG/ML 1 ML VIAL IV SCH (08:07)
[2020-06-19] MEDS: FAMOTIDINE 20 MG TAB PO SCH ×2 (08:07→20:14)
[2020-06-19] MEDS: POTASSIUM CHLORIDE ER 20 MEQ TAB.ER PO SCH ×2 (08:07→20:15)
[2020-06-19] MEDS: MULTIVITAMINS, THERA 1 EACH TAB PO SCH (08:07)
[2020-06-19] MEDS: CALCIUM CARB-VIT D 500MG-200UN 1 EACH TAB PO SCH ×2 (08:07→15:17)
[2020-06-19] MEDS: ZINC SULFATE 220 MG CAP PO SCH (08:08)
[2020-06-19] MEDS: INSULIN PUMP MEAL BOLUS 1 UNIT MISC MISCELLANE SCH ×4 (08:08→20:15)
[2020-06-19 10:19] LABS: African American GFR (CKD) 92.9 (60.0-200.0); BUN/Creat Ratio 18.75 Ratio (12.00-20.00); C Reactive Protein 2.4 mg/dL (0.0-0.8); Calcium 8.4 mg/dL (8.7-10.3); Non-African American GFR(CKD) 80.1 (60.0-200.0); Potassium 3.9 mmol/L (3.5-5.5)
[2020-06-19 12:00] LABS: Glucose,Whole Blood 194 mg/dL (75-99)
[2020-06-19] MEDS: REMDESIVIR (EUA) 100 MG in SODIUM CHLORIDE 0.9% 250 ML IVPB SCH (15:16)
--- NOTE | 2020-06-19 15:55 | PN ---
PROGRESS NOTE DATE OF SERVICE: 06/19/2020 This is a 60-year-old woman who was admitted with COVID-19 bilateral pneumonia, also had hypoxia. The patient is started on Remdesivir. Patient had no evidence of pulmonary embolism. Most recent chest x-ray which I reviewed personally showed bilateral infiltrates slightly worsening at this time. Multiple consultants following the patient closely. PAST MEDICAL HISTORY: Reviewed. REVIEW OF SYSTEMS: CARDIOVASCULAR SYSTEM: No angina. RESPIRATORY: As mentioned earlier. GI: As mentioned earlier. : No dysuria. NERVOUS SYSTEM: No numbness or weakness. CURRENT MEDICATIONS: Reviewed and include: 1. Tylenol. 2. Vitamin C. 3. Aspirin. 4. Os-Andrés with vitamin D. 5. Benadryl. 6. Lovenox. 7. Toprol-XL. 8. Multivitamins. 9. Narcan. 10.Remdesivir protocol. PHYSICAL EXAM: Patient is alert, oriented x3. Pulse 64, blood pressure 151/69, respirations 17, temperature 97.7, pulse ox 92% on room air. HEENT: Conjunctivae normal. NECK: No jugular venous distension. CARDIOVASCULAR SYSTEM: S1, S2, muffled. RESPIRATORY SYSTEM: Breath sounds diminished at the bases, bilateral scattered rhonchi and crackles. ABDOMEN: Soft, nontender. LEGS: No edema, no swelling. NERVOUS SYSTEM: No focal deficits. LABS: WBC 5.2, hemoglobin 13.2, and glucose 121. LDH is 378 and C-reactive protein is 2.4. ASSESSMENT: 1. Bilateral COVID-19 interstitial pneumonia with acute hypoxic respiratory failure present on admission on Remdesivir. 2. Elevated D-dimer with no evidence of pulmonary embolism. 3. Hyponatremia. 4. Elevated ferritin. 5. Elevated LDH and CRP. 6. History of CHF, ejection fraction unknown. 7. Diabetes mellitus type 2. 8. Fibromyalgia. 9. Hyperlipidemia. 10.History of Graves disease. 11.Diabetes mellitus type 2 on insulin pump. 12.History of DJD. 13.History of right hand carpal tunnel syndrome. 14.Obesity with body mass index of 39.5. RECOMMENDATION: Recommend to continue current medications, continue monitoring and symptomatic treatment. Otherwise, continue with Remdesivir, continue with bronchodilators. Continue with IV steroids. Continue the Lovenox. Continue the rest of medications. Prognosis guarded because of multiple complex medical issues. Close follow up with Pulmonary and as well as Infectious Disease. Further recommendations to follow. MMODL / IJN: [id number] /
--- NOTE | 2020-06-19 16:28 | P.PN ---
Subjective Progress Note Date: 06/19/20 Principal diagnosis: Covid 19 pneumonia Acute hypoxic respiratory failure Type 1 diabetes Morbid obesity Elevated d-dimer and inflammatory parameters consistent with above Dyslipidemia History of Graves' disease 06/19/2020, patient seen and evaluated examined during rounds labs reviewed medications reviewed care plan discussed, patient is in room air, but does get short of breath on activity, still have intermittent cough denies any chest pain labs reviewed medications reviewed 06/18/2020, patient seen eval examined during the rounds labs reviewed medications reviewed care plan discussed, patient has been prone, oxygen saturation 95%, she feels her respiratory status significantly improved, remains on IV Remdesivir along with oral Decadron, chest x-ray done today reviewed slight worsening has been noted however clinically patient definitely has improved with improved oxygen saturation, labs today CBC within normal limit including chemistry, inflammatory parameters reviewed there is a slight improvement and stability noted This is a 60-year-old female with the prior medical history of type 1 diabetes mellitus also has a history of Graves' disease, she has been not feeling well for last 9-10 days with poor appetite and intermittent nausea 5 days ago she started having cough shortness of breath, she was found to be coag 19 positive outside test, her chest x-ray admitted shows bilateral patchy infiltrate predominantly in perihilar area consistent with covid 19 pneumonia, VQ scan is low probability for PE, computed tomography scan of his chest shows bilateral patchy infiltrate consistent with covid 19 pneumonia, patient has inflammatory parameters elevated however Procan sit on and is within normal limit, her oxygen saturation is 94% on 2 L, she did desaturate to 90% room air Objective - Vital Signs Vital signs: Vital Signs Temp 97.7 F 06/19/20 07:36 Pulse 64 06/19/20 07:36 Resp 17 06/19/20 07:36 BP 151/69 06/19/20 07:36 Pulse Ox 93 L 06/19/20 07:36 Intake & Output 06/18/20 06/19/20 06/19/20 18:59 06:59 18:59 Intake Total 1080 200 Balance 1080 200 Intake: Oral 1080 200 Other: Voiding Method Toilet # Voids 1 3 2 - Exam - Constitutional General appearance: average body habitus, disheveled - EENT Eyes: PERRLA Ears: bilateral: normal - Neck Carotids: bilateral: upstroke normal - Respiratory Respiratory: bilateral: CTA - Cardiovascular Rhythm: regular Heart sounds: normal: S1, S2 - Neurologic Neurologic: CNII-XII intact - Musculoskeletal Musculoskeletal: gait normal, generalized weakness, strength equal bilaterally - Psychiatric Psychiatric: A&O x's 3, appropriate affect, intact judgment & insight - Labs CBC & Chem 7: 06/19/20 05:55 06/19/20 05:55 Labs: Abnormal Lab Results - Last 24 Hours (Table) 06/18/20 06/18/20 06/19/20 Range/Units 16:43 20:50 05:55 Lymphocytes # 0.8 L (1.0-4.8) k/uL Glucose (70-110) mg/dL POC Glucose (mg/dL) 152 H 135 H (75-99) mg/dL Calcium (8.7-10.3) mg/dL Lactate Dehydrogenase (120-246) U/L C-Reactive Protein (0.0-0.8) mg/dL 06/19/20 06/19/20 06/19/20 Range/Units 05:55 07:06 11:49 Lymphocytes # (1.0-4.8) k/uL Glucose 121 H (70-110) mg/dL POC Glucose (mg/dL) 124 H 194 H (75-99) mg/dL Calcium 8.4 L (8.7-10.3) mg/dL Lactate Dehydrogenase 378 H (120-246) U/L C-Reactive Protein 2.4 H (0.0-0.8) mg/dL Assessment and Plan Assessment: Covert 19 pneumonia Acute hypoxic respiratory failure Type 1 diabetes Elevated d-dimer and inflammatory parameters consistent with above Dyslipidemia History of Graves' disease Morbid obesity Plan: IV Remdesivir for 5 days Supplemental oxygen Oral Decadron for 10 days Deep breathing exercise incentive spirometry Prone positioning Bronchodilator as needed Continue anticoagulation with Lovenox Further recommendations pending plan of care as per clinical response of patient Time with Patient: Greater than 30
[2020-06-19 16:44] LABS: Glucose,Whole Blood 248 mg/dL (75-99)
[2020-06-19] MEDS: ACETAMINOPHEN TAB 325 MG TAB PO PRN (16:52)
[2020-06-19 20:14] LABS: Glucose,Whole Blood 317 mg/dL (75-99)
[2020-06-19] MEDS: PRAVASTATIN SODIUM 20 MG TAB PO SCH (20:14)
--- NOTE | 2020-06-19 22:36 | PN ---
PROGRESS NOTE DATE OF SERVICE: 06/19/2020 REASON FOR FOLLOWUP: Covid-19 pneumonia. INTERVAL HISTORY: Patient is currently afebrile. The patient is breathing comfortably. The patient denies having any chest pain. Cough has decreased intensity, not bringing up any sputum. No nausea, vomiting. No abdominal pain. No diarrhea. PHYSICAL EXAMINATION: Blood pressure 138/73 with a pulse of 57. Temperature is 97.8. She is 93% on room air. General description is an elderly female up in the bed in no distress. Respiratory system: Unlabored breathing, decreased breath sounds in the base, with no wheeze. Heart S1, S2. Regular rate and rhythm. Abdomen soft, no tenderness. LABS: Hemoglobin 13.2, white count 5.5. BUN of 15, creatinine 0.8. CRP is down to 2.4. DIAGNOSTIC IMPRESSION AND PLAN: Patient with acute COVID-19 pneumonia in this patient who seemed to have shown overall clinical improvement with Remdesivir in addition to Decadron, Lovenox, and to continue and monitor her clinical course closely. Continue supportive care. MMODL / IJN: [id number] /
[2020-06-20] MEDS: METOCLOPRAMIDE 5 MG/ML 2 ML VIAL IVP SCH ×4 (05:31→23:18)
[2020-06-20 07:00] LABS: Glucose,Whole Blood 56 mg/dL (75-99)
[2020-06-20 07:26] LABS: Glucose,Whole Blood 78 mg/dL (75-99)
[2020-06-20] MEDS: INSULIN PUMP MEAL BOLUS 1 UNIT MISC MISCELLANE SCH ×4 (08:33→21:05)
[2020-06-20] MEDS: ASPIRIN 81 MG PO SCH (09:56)
[2020-06-20] MEDS: ASCORBIC ACID 500 MG TAB PO SCH (09:56)
[2020-06-20] MEDS: CALCIUM CARB-VIT D 500MG-200UN 1 EACH TAB PO SCH ×2 (09:56→17:13)
[2020-06-20] MEDS: METOPROLOL SUCCINATE (ER) 50 MG TAB.ER.24H PO SCH (09:56)
[2020-06-20] MEDS: ZINC SULFATE 220 MG CAP PO SCH (09:56)
[2020-06-20] MEDS: FAMOTIDINE 20 MG TAB PO SCH ×2 (09:56→21:05)
[2020-06-20] MEDS: POTASSIUM CHLORIDE ER 20 MEQ TAB.ER PO SCH ×2 (09:56→21:05)
[2020-06-20] MEDS: FUROSEMIDE 40 MG TAB PO SCH (09:56)
[2020-06-20] MEDS: MULTIVITAMINS, THERA 1 EACH TAB PO SCH (09:56)
[2020-06-20] MEDS: DEXAMETHASONE SOD PHOSPHATE 10 MG/ML 1 ML VIAL IV SCH (09:57)
[2020-06-20] MEDS: LOSARTAN 50 MG TAB PO SCH (09:57)
[2020-06-20] MEDS: methIMAzole 5 MG TAB PO SCH (09:57)
[2020-06-20] MEDS: ENOXAPARIN 40 MG/0.4 ML SYRINGE SQ SCH ×2 (09:58→21:05)
[2020-06-20 10:08] LABS: Glucose,Whole Blood 140 mg/dL (75-99)
[2020-06-20 11:26] LABS: Glucose,Whole Blood 116 mg/dL (75-99)
[2020-06-20] MEDS ORDERED: ZOLPIDEM 5 MG TAB PO PRN (13:47)
--- NOTE | 2020-06-20 14:55 | P.PN ---
Subjective Progress Note Date: 06/20/20 Principal diagnosis: Covid 19 pneumonia Acute hypoxic respiratory failure Type 1 diabetes Morbid obesity Elevated d-dimer and inflammatory parameters consistent with above Dyslipidemia History of Graves' disease 06/20/2020, patient seen eval reexamined shortness of breath is much better denies any cough or chest pain, patient is scheduled to get 2 more IV Remdesivir, denies any chest pain, oxygen saturation remained stable off of oxygen supplemental oxygen, 06/19/2020, patient seen and evaluated examined during rounds labs reviewed medications reviewed care plan discussed, patient is in room air, but does get short of breath on activity, still have intermittent cough denies any chest pain labs reviewed medications reviewed 06/18/2020, patient seen eval examined during the rounds labs reviewed medications reviewed care plan discussed, patient has been prone, oxygen saturation 95%, she feels her respiratory status significantly improved, remains on IV Remdesivir along with oral Decadron, chest x-ray done today reviewed slight worsening has been noted however clinically patient definitely has improved with improved oxygen saturation, labs today CBC within normal limit including chemistry, inflammatory parameters reviewed there is a slight improvement and stability noted This is a 60-year-old female with the prior medical history of type 1 diabetes mellitus also has a history of Graves' disease, she has been not feeling well for last 9-10 days with poor appetite and intermittent nausea 5 days ago she started having cough shortness of breath, she was found to be coag 19 positive outside test, her chest x-ray admitted shows bilateral patchy infiltrate predominantly in perihilar area consistent with covid 19 pneumonia, VQ scan is low probability for PE, computed tomography scan of his chest shows bilateral patchy infiltrate consistent with covid 19 pneumonia, patient has inflammatory parameters elevated however Procan sit on and is within normal limit, her oxygen saturation is 94% on 2 L, she did desaturate to 90% room air Objective - Vital Signs Vital signs: Vital Signs Temp 97.6 F 06/20/20 14:24 Pulse 72 06/20/20 14:24 Resp 17 06/20/20 14:24 BP 137/77 06/20/20 14:24 Pulse Ox 95 06/20/20 14:24 Intake & Output 06/19/20 06/20/20 06/20/20 18:59 06:59 18:59 Intake Total 400 Balance 400 Intake: Oral 400 Other: Voiding Method Toilet # Voids 2 1 3 - Exam - Constitutional General appearance: average body habitus, disheveled - EENT Eyes: PERRLA Ears: bilateral: normal - Neck Carotids: bilateral: upstroke normal - Respiratory Respiratory: bilateral: CTA - Cardiovascular Rhythm: regular Heart sounds: normal: S1, S2 - Neurologic Neurologic: CNII-XII intact - Musculoskeletal Musculoskeletal: gait normal, generalized weakness, strength equal bilaterally - Psychiatric Psychiatric: A&O x's 3, appropriate affect, intact judgment & insight - Labs CBC & Chem 7: 06/19/20 05:55 06/19/20 05:55 Labs: Abnormal Lab Results - Last 24 Hours (Table) 06/19/20 06/19/20 06/20/20 Range/Units 16:43 20:09 06:58 POC Glucose (mg/dL) 248 H 317 H 56 L (75-99) mg/dL 06/20/20 06/20/20 Range/Units 10:06 11:25 POC Glucose (mg/dL) 140 H 116 H (75-99) mg/dL Assessment and Plan Assessment: Covert 19 pneumonia Acute hypoxic respiratory failure Type 1 diabetes Elevated d-dimer and inflammatory parameters consistent with above Dyslipidemia History of Graves' disease Morbid obesity Plan: IV Remdesivir for 5 days Now off of Supplemental oxygen, Oral Decadron for 10 days Deep breathing exercise incentive spirometry Prone positioning Bronchodilator as needed Continue anticoagulation with Lovenox, at the time of discharge patient can be switched to aspirin once daily Further recommendations pending plan of care as per clinical response of patient Time with Patient: Greater than 30
[2020-06-20] MEDS: REMDESIVIR (EUA) 100 MG in SODIUM CHLORIDE 0.9% 250 ML IVPB SCH (16:03)
[2020-06-20 16:18] LABS: Glucose,Whole Blood 235 mg/dL (75-99)
--- NOTE | 2020-06-20 17:54 | P.PN ---
Subjective Progress Note Date: 06/20/20 60-year-old female with the prior medical history of type 1 diabetes mellitus also has a history of Graves' disease, she has been not feeling well for last 9- 10 days with poor appetite and intermittent nausea 5 days ago she started having cough shortness of breath, she was found to be coag 19 positive outside test, her chest x-ray admitted shows bilateral patchy infiltrate predominantly in perihilar area consistent with covid 19 pneumonia, VQ scan is low probability for PE, computed tomography scan of his chest shows bilateral patchy infiltrate consistent with covid 19 pneumonia, patient has inflammatory parameters elevated however Procan sit on and is within normal limit, her oxygen saturation is 94% on 2 L, she did desaturate to 90% room air 06/20/2020, patient is seen and evaluated in room at bedside; reports shortness of breath is much better; denies any cough or chest pain, patient is scheduled to get 2 more IV Remdesivir, denies any chest pain, oxygen saturation remained stable off of oxygen supplemental oxygen, continue with vitamin C and zinc sulfate; pulmonary on board Objective - Vital Signs Vital signs: Vital Signs Temp 97.8 F 06/20/20 07:00 Pulse 59 L 06/20/20 07:00 Resp 17 06/20/20 07:00 BP 123/85 06/20/20 07:00 Pulse Ox 95 06/20/20 07:00 Intake & Output 06/19/20 06/20/20 06/20/20 18:59 06:59 18:59 Intake Total 400 Balance 400 Intake: Oral 400 Other: Voiding Method Toilet # Voids 2 1 - Exam PHYSICAL EXAMINATION: GENERAL: The patient is alert and oriented x3, not in any acute distress. Well developed, well nourished. HEENT: Pupils are round and equally reacting to light. EOMI. No scleral icterus. No conjunctival pallor. Normocephalic, atraumatic. No pharyngeal erythema. No thyromegaly. CARDIOVASCULAR: S1 and S2 present. No murmurs, rubs, or gallops. PULMONARY: Chest is clear to auscultation, no wheezing or crackles. ABDOMEN: Soft, nontender, nondistended, normoactive bowel sounds. No palpable organomegaly. MUSCULOSKELETAL: No joint swelling or deformity. EXTREMITIES: No cyanosis, clubbing, or pedal edema. NEUROLOGICAL: Gross neurological examination did not reveal any focal deficits. SKIN: No rashes. - Labs CBC & Chem 7: 06/19/20 05:55 06/19/20 05:55 Labs: Abnormal Lab Results - Last 24 Hours (Table) 06/19/20 06/19/20 06/19/20 Range/Units 11:49 16:43 20:09 POC Glucose (mg/dL) 194 H 248 H 317 H (75-99) mg/dL 06/20/20 06/20/20 Range/Units 06:58 10:06 POC Glucose (mg/dL) 56 L 140 H (75-99) mg/dL Assessment and Plan Assessment: 1. Acute respiratory failure; with hypoxia - Covert 19 vital infection - Continue with treatment as outlined above - Pulmonary recommendations are noted and appreciated 2. Diabetes mellitus type 1; monitor Accu-Cheks before meals and at bedtime insulin sliding scale 3. Hyperlipidemia; continue with home statin therapy 4. Elevated d-dimer; secondary to covert 19 infection 5. Morbid obesity; counseling done DVT prophylaxis; SCDs/anticoagulation CODE STATUS;
[2020-06-20 20:25] LABS: Glucose,Whole Blood 276 mg/dL (75-99)
[2020-06-20] MEDS: PRAVASTATIN SODIUM 20 MG TAB PO SCH (21:05)
--- NOTE | 2020-06-20 22:34 | PN ---
PROGRESS NOTE DATE OF SERVICE: 06/20/2020 REASON FOR FOLLOWUP: COVID-19 pneumonia. INTERVAL HISTORY: Patient is currently afebrile. Patient is breathing more comfortably. Denies having any chest pain. Cough has decreased in intensity. No nausea, no vomiting. No abdominal pain, no diarrhea. PHYSICAL EXAMINATION: Blood pressure is 161/60 with a pulse of 52, temperature 97.4. She is 95% on room air. General description is a middle-aged female lying in bed in no distress. Respiratory system: Unlabored breathing, decreased intense breath sounds. No wheeze. Heart S1, S2. Regular rate and rhythm. Abdomen soft, no tenderness. LABS: No new labs have been obtained today. DIAGNOSTIC IMPRESSION AND PLAN: Patient with acute COVID-19 pneumonia. This patient did show clinical improvement to the Remdesivir, Decadron and Lovenox, to continue and monitor clinical course closely. Continue supportive care. MMODL / IJN: [id number] /
[2020-06-21] MEDS: METOCLOPRAMIDE 5 MG/ML 2 ML VIAL IVP SCH ×2 (05:51→12:41)
[2020-06-21 07:19] LABS: Glucose,Whole Blood 80 mg/dL (75-99)
[2020-06-21] MEDS: CALCIUM CARB-VIT D 500MG-200UN 1 EACH TAB PO SCH (09:11)
[2020-06-21] MEDS: MULTIVITAMINS, THERA 1 EACH TAB PO SCH (09:11)
[2020-06-21] MEDS: POTASSIUM CHLORIDE ER 20 MEQ TAB.ER PO SCH (09:11)
[2020-06-21] MEDS: ASCORBIC ACID 500 MG TAB PO SCH (09:11)
[2020-06-21] MEDS: DEXAMETHASONE SOD PHOSPHATE 10 MG/ML 1 ML VIAL IV SCH (09:11)
[2020-06-21] MEDS: METOPROLOL SUCCINATE (ER) 50 MG TAB.ER.24H PO SCH (09:11)
[2020-06-21] MEDS: LOSARTAN 50 MG TAB PO SCH (09:12)
[2020-06-21] MEDS: FUROSEMIDE 40 MG TAB PO SCH (09:12)
[2020-06-21] MEDS: ENOXAPARIN 40 MG/0.4 ML SYRINGE SQ SCH (09:12)
[2020-06-21] MEDS: FAMOTIDINE 20 MG TAB PO SCH (09:12)
[2020-06-21] MEDS: ASPIRIN 81 MG PO SCH (09:12)
[2020-06-21] MEDS: ZINC SULFATE 220 MG CAP PO SCH (09:12)
[2020-06-21] MEDS: INSULIN PUMP MEAL BOLUS 1 UNIT MISC MISCELLANE SCH ×2 (09:13→12:41)
[2020-06-21 09:30] VITALS: RESP 17
[2020-06-21 12:14] LABS: Glucose,Whole Blood 185 mg/dL (75-99)
--- NOTE | 2020-06-21 15:08 | PN ---
PROGRESS NOTE DATE OF SERVICE: 06/21/2020 REASON FOR FOLLOWUP: Acute COVID-19 infection. INTERVAL HISTORY: Patient is currently afebrile. Patient is breathing comfortably on room air. Patient denies having any chest pain or shortness of breath. Minimal cough. No vomiting, no abdominal pain, no diarrhea. PHYSICAL EXAMINATION: Blood pressure 157/65 with a pulse of 62, temperature 97.7. She is 95% on room air. General description is a middle-aged female up in the bed in no distress. Respiratory system: Unlabored breathing. Abdomen is soft. Extremities show no edema to the feet. LABS: No new labs have been obtained today. DIAGNOSTIC IMPRESSION AND PLAN: Patient with acute COVID-19 infection. The patient overall has clinical improvement. The patient to finish therapy with a short course of oral Decadron, Pepcid and zinc sulfate. Continue supportive care. Thank you. SOTERO / LAUREL: [id number] /
[2020-06-21] MEDS: REMDESIVIR (EUA) 100 MG in SODIUM CHLORIDE 0.9% 250 ML IVPB SCH (15:09)
[2020-06-21 15:20] VITALS: BP 161/72; PULSE 50; TEMP 97.5
--- NOTE | 2020-06-21 19:42 | P.PN ---
Subjective Progress Note Date: 06/21/20 (Late entry note) Principal diagnosis: Covid 19 pneumonia Acute hypoxic respiratory failure Type 1 diabetes Morbid obesity Elevated d-dimer and inflammatory parameters consistent with above Dyslipidemia History of Graves' disease 06/21/2020, patient seen and evaluated examined cough shortness of breath improve patient is off of oxygen now oxygen saturation 95% room air breathing comfortably no chest pain or shortness of breath the cough is present patient requesting for discharge, will finish Decadron as outpatient 06/20/2020, patient seen eval reexamined shortness of breath is much better denies any cough or chest pain, patient is scheduled to get 2 more IV Remdes ivir, denies any chest pain, oxygen saturation remained stable off of oxygen supplemental oxygen, 06/19/2020, patient seen and evaluated examined during rounds labs reviewed medications reviewed care plan discussed, patient is in room air, but does get short of breath on activity, still have intermittent cough denies any chest pain labs reviewed medications reviewed 06/18/2020, patient seen eval examined during the rounds labs reviewed medications reviewed care plan discussed, patient has been prone, oxygen saturation 95%, she feels her respiratory status significantly improved, remains on IV Remdesivir along with oral Decadron, chest x-ray done today reviewed slight worsening has been noted however clinically patient definitely has improved with improved oxygen saturation, labs today CBC within normal limit including chemistry, inflammatory parameters reviewed there is a slight improv ement and stability noted This is a 60-year-old female with the prior medical history of type 1 diabetes mellitus also has a history of Graves' disease, she has been not feeling well for last 9-10 days with poor appetite and intermittent nausea 5 days ago she started having cough shortness of breath, she was found to be coag 19 positive outside test, her chest x-ray admitted shows bilateral patchy infiltrate predominantly in perihilar area consistent with covid 19 pneumonia, VQ scan is low probability for PE, computed tomography scan of his chest shows bilateral patchy infiltrate consistent with covid 19 pneumonia, patient has inflammatory parameters elevated however Procan sit on and is within normal limit, her oxygen saturation is 94% on 2 L, she did desaturate to 90% room air Objective - Vital Signs Vital signs: Vital Signs Temp 97.5 F L 06/21/20 14:41 Pulse 50 L 06/21/20 14:41 Resp 17 06/21/20 14:41 BP 161/72 06/21/20 14:41 Pulse Ox 94 L 06/21/20 14:41 Intake & Output 06/21/20 06/21/20 06/22/20 06:59 18:59 06:59 Intake Total 250 Balance 250 Intake: IV 250 Remdesivir (Eua) 100 mg 250 In Sodium Chloride 0.9% 250 ml @ 250 mls/hr IVPB DAILY@1600 [facility] Rx#: [id number] Other: # Voids 2 - Exam - Constitutional General appearance: average body habitus, disheveled - EENT Eyes: PERRLA Ears: bilateral: normal - Neck Carotids: bilateral: upstroke normal - Respiratory Respiratory: bilateral: CTA - Cardiovascular Rhythm: regular Heart sounds: normal: S1, S2 - Neurologic Neurologic: CNII-XII intact - Musculoskeletal Musculoskeletal: gait normal, generalized weakness, strength equal bilaterally - Psychiatric Psychiatric: A&O x's 3, appropriate affect, intact judgment & insight - Labs CBC & Chem 7: 06/19/20 05:55 06/19/20 05:55 Labs: Abnormal Lab Results - Last 24 Hours (Table) 06/20/20 06/21/20 Range/Units 20:23 12:11 POC Glucose (mg/dL) 276 H 185 H (75-99) mg/dL Assessment and Plan Assessment: Covert 19 pneumonia Acute hypoxic respiratory failure Type 1 diabetes Elevated d-dimer and inflammatory parameters consistent with above Dyslipidemia History of Graves' disease Morbid obesity Plan: IV Remdesivir for 5 days Now off of Supplemental oxygen, Oral Decadron for 10 days Deep breathing exercise incentive spirometry Prone positioning Bronchodilator as needed Continue anticoagulation with Lovenox, at the time of discharge patient can be switched to aspirin once daily Further recommendations pending plan of care as per clinical response of patient Time with Patient: Greater than 30
== END 2020-06-21 16:45 | disposition home or self-care (01) | DRG 177 ==
LOC: EC 13:56 → 4SSUR 17:05
PROVIDERS: ADMIT Hospitalist; ATTEND Hospitalist
PROC: XW033E5 Introduction of Remdesivir Anti-infective into Peripheral Vein, Percutaneous Approach, New Technology Group 5 (ICD-10-PCS; principal; 2020-06-17)
DX: U07.1 COVID-19 (principal); J12.89 Other viral pneumonia; J96.01 Acute respiratory failure with hypoxia; R04.2 Hemoptysis; E87.1 Hypo-osmolality and hyponatremia; E10.9 Type 1 diabetes mellitus without complications; Z79.4 Long term (current) use of insulin; I50.9 Heart failure, unspecified; E05.00 Thyrotoxicosis with diffuse goiter without thyrotoxic crisis or storm; E78.5 Hyperlipidemia, unspecified; M79.7 Fibromyalgia; M19.90 Unspecified osteoarthritis, unspecified site; R74.02 Elevation of levels of lactic acid dehydrogenase [LDH]; E66.01 Morbid (severe) obesity due to excess calories; Z68.39 Body mass index [BMI] 39.0-39.9, adult; Z79.899 Other long term (current) drug therapy; Z96.41 Presence of insulin pump (external) (internal); Z79.82 Long term (current) use of aspirin; Z90.710 Acquired absence of both cervix and uterus; Z88.1 Allergy status to other antibiotic agents; Z91.040 Latex allergy status; Z91.013 Allergy to seafood; Z88.7 Allergy status to serum and vaccine; Z91.018 Allergy to other foods; Z91.041 Radiographic dye allergy status; Z98.890 Other specified postprocedural states; Z82.0 Family history of epilepsy and other diseases of the nervous system; Z82.49 Family history of ischemic heart disease and other diseases of the circulatory system
CPT/HCPCS: 36415; 71045; 71046; 71250; 78580; 80048; 80053; 81003; 82150; 82728; 83605; 83615; 83690; 83735; 84145; 84484; 85025; 85379; 85610; 85730; 86140; 87635; 93005; 96361; 96374; 96375; 96376; 99285

== ENCOUNTER → 2022-05-31 | Outpatient (CLI) | payer BC ==
[2022-05-31 19:25] LABS: ALT 25 U/L (8-44); AST 23 U/L (13-35); African American GFR (CKD) 91.6 (60.0-200.0); Albumin/Globulin Ratio 1.25 (1.60-3.17); Alkaline Phosphatase 88 U/L (41-126); Blood Urea Nitrogen 7.6 mg/dL (9.0-27.0); Calcium 9.4 mg/dL (8.7-10.3); Carbon Dioxide 29.1 mmol/L (20.0-27.5); Chloride 103 mmol/L (96-109); Chol/HDL Ratio 6.16 Ratio; Globulin 3.2 g/dL (1.6-3.3); Glucose 138 mg/dL (70-110); Potassium 4.6 mmol/L (3.5-5.5); Sodium 140 mmol/L (135-145); Total Protein 7.2 g/dL (6.2-8.2)
[2022-05-31 21:03] LABS: Microalbumin Creatinine Ratio <30 mg/g Creat (0-30)
== END | disposition home or self-care (01) ==
LOC: LABWHC1 13:17
PROVIDERS: ATTEND Physician Assistant
DX: E10.65 Type 1 diabetes mellitus with hyperglycemia (principal)
CPT/HCPCS: 36415; 80053; 80061; 82043; 82570; 84439; 84443